=== PATIENT | male | born 1960 | race Caucasian/White ===

== ENCOUNTER → 2017-03-03 | Outpatient (CLI) | payer MEDICARE, OTHER ==
[2017-03-03 11:58] LABS: HEMATOCRIT 50.6 % (37.9-51.0); MEAN CORPUSCULAR HEMOGLOBIN 31.2 pg (27.0-33.4); MEAN CORPUSCULAR HGB CONC 33.5 g/dL (32.0-36.0); MEAN CORPUSCULAR VOLUME 93 fl (80-97); PLATELET COUNT 242 10^3/uL (150-450); RED BLOOD COUNT 5.44 10^6/uL (4.35-5.55); RED CELL DISTRIBUTION WIDTH 15.5 % (11.5-14.0); WHITE BLOOD COUNT 7.7 10^3/uL (4.0-10.5)
[2017-03-03 12:01] LABS: APPEARANCE,URINE CLEAR; BILIRUBIN,URINE NEGATIVE (NEGATIVE); COLOR,URINE YELLOW; GLUCOSE, URINE NEGATIVE (NEGATIVE); KETONES,URINE NEGATIVE (NEGATIVE); LEUKOCYTE ESTERASE,URINE NEGATIVE (NEGATIVE); NITRITE,URINE NEGATIVE (NEGATIVE); PROTEIN,URINE NEGATIVE (NEGATIVE); URINE SPECIFIC GRAVITY 1.013
[2017-03-03 12:25] LABS: ANION GAP 9 (5-19); BLOOD UREA NITROGEN 30 mg/dL (7-20); CALCIUM 9.8 mg/dL (8.4-10.2); CARBON DIOXIDE 27 mmol/L (22-30); CHLORIDE 103 mmol/L (98-107); GLUCOSE 75 mg/dL (75-110); POTASSIUM 5.1 mmol/L (3.6-5.0); SODIUM 139.3 mmol/L (137-145)
== END ==
LOC: OD 11:14
PROVIDERS: ATTEND Internal Medicine Nephrology
DX: I12.9 Hypertensive chronic kidney disease with stage 1 through stage 4 chronic kidney disease, or unspecified chronic kidney disease (principal); N18.3 Chronic kidney disease, stage 3 (moderate); E11.9 Type 2 diabetes mellitus without complications
CPT/HCPCS: 36415; 80048; 81001; 85027

== ENCOUNTER 2017-05-08 17:57 | Emergency (ER) | payer MEDICARE, OTHER ==
--- NOTE | 2017-05-08 19:53 | ER Document Report ---
ED Medical Screen (RME) - General Chief Complaint: Abnormal Lab Results Stated Complaint: ABNORMAL LAB Time Seen by Provider: 05/08/17 19:51 Mode of Arrival: Ambulatory Information source: Patient TRAVEL OUTSIDE OF THE [place] IN LAST 30 DAYS: No - HPI Patient complains to provider of: elevated potassium Notes: 05/08/17 19:52 Patient is here with complaints of high potassium. He states that his doctor called him and told him that blood work they have done in the office showed that his potassium was 6.2 and he should come to the emergency department. Patient denies any symptoms at all. No chest pain or shortness of breath. He states that he has had this happen in the past and has required treatment for hyperkalemia in the past. Physical exam: No acute distress, nonfocal exam. Plan: Blood work and EKG have been ordered. An initial examination was made on the patient as part of the triage process, and it was determined a more comprehensive evaluation was necessary. Initial labs were ordered and patient was transferred to another provider in the ED who assumed care and finished evaluation and plan. - Related Data Allergies/Adverse Reactions: No Known Allergies Allergy (Verified 05/08/17 18:00) Past Medical History - Past Medical History Cardiac Medical History: Reports: Hx Heart Attack - 2012, Hx Hypercholesterolemia, Hx Hypertension Denies: Hx Coronary Artery Disease Pulmonary Medical History: Reports: Hx Pneumonia - HX OF Denies: Hx Asthma, Hx Bronchitis, Hx COPD Neurological Medical History: Reports: Hx Cerebrovascular Accident - 2009, 2012;LEFT SIDED NUMBNESS/TINGLING. Denies: Hx Seizures Endocrine Medical History: Reports: Hx Diabetes Mellitus Type 2 GI Medical History: Reports: Hx Gastroesophageal Reflux Disease Musculoskeltal Medical History: Denies Hx Arthritis Psychiatric Medical History: Reports: Hx Anxiety, Hx Depression Past Surgical History: Reports: Hx Testicular Surgery - right removed - Immunizations Immunizations up to date: Yes Hx Diphtheria, Pertussis, Tetanus Vaccination: No Physical Exam - Vital signs Vitals: Temp Pulse Resp BP Pulse Ox 98.7 F 103 H 20 116/75 96 05/08/17 18:28 05/08/17 18:28 05/08/17 18:28 05/08/17 18:28 05/08/17 18:28 Course - Vital Signs Vital signs: Temp Pulse Resp BP Pulse Ox 98.7 F 103 H 20 116/75 96 05/08/17 18:28 05/08/17 18:28 05/08/17 18:28 05/08/17 18:28 05/08/17 18:28
[2017-05-08 21:13] LABS: ABSOLUTE BASOPHILS # (AUTO) 0.1 10^3/uL (0.0-0.2); ABSOLUTE EOSINOPHILS # (AUTO) 0.3 10^3/uL (0.0-0.6); ABSOLUTE LYMPHOCYTES (AUTO) 2.1 10^3/uL (0.5-4.7); ABSOLUTE MONOCYTES (AUTO) 0.6 10^3/uL (0.1-1.4); ABSOLUTE NEUT (AUTO) 3.7 10^3/uL (1.7-8.2); BASOPHILS % (AUTO) 0.8 % (0-2); HEMATOCRIT 53.2 % (37.9-51.0); HEMOGLOBIN 17.8 g/dL (13.5-17.0); LYMPHOCYTES % (AUTO) 31.3 % (13-45); MEAN CORPUSCULAR HEMOGLOBIN 31.1 pg (27.0-33.4); MEAN CORPUSCULAR HGB CONC 33.5 g/dL (32.0-36.0); MEAN CORPUSCULAR VOLUME 93 fl (80-97); MONOCYTES % (AUTO) 9.4 % (3-13); PLATELET COUNT 222 10^3/uL (150-450); RED BLOOD COUNT 5.73 10^6/uL (4.35-5.55); RED CELL DISTRIBUTION WIDTH 15.5 % (11.5-14.0); SEGMENTED NEUTROPHILS % (AUTO) 54.5 % (42-78); TOTAL CELLS COUNTED % (AUTO) 100 %; WHITE BLOOD COUNT 6.7 10^3/uL (4.0-10.5)
[2017-05-08 21:30] LABS: ALANINE AMINOTRANSFERASE 30 U/L (21-72); ALBUMIN 4.4 g/dL (3.5-5.0); ALKALINE PHOSPHATASE 91 U/L (38-126); ANION GAP 10 (5-19); ASPARTATE AMINO TRANSFERASE 16 U/L (17-59); BILIRUBIN,DIRECT 0.3 mg/dL (0.0-0.4); BILIRUBIN,TOTAL 0.6 mg/dL (0.2-1.3); BLOOD UREA NITROGEN 51 mg/dL (7-20); CALCIUM 9.6 mg/dL (8.4-10.2); CARBON DIOXIDE 26 mmol/L (22-30); CHLORIDE 105 mmol/L (98-107); GLUCOSE 100 mg/dL (75-110); POTASSIUM 5.9 mmol/L (3.6-5.0); SODIUM 140.9 mmol/L (137-145)
[2017-05-08] MEDS ORDERED: ALBUTEROL SULFATE 0.083% NEB 2.5 MG/3 ML AMPUL NEB ONE (22:28)
[2017-05-08] MEDS ORDERED: NORMAL SALINE 1000 ML 1,000 ML IV ONE (22:29)
[2017-05-08] MEDS ORDERED: SODIUM POLYSTYRENE SULFONATE 15 GM/60 ML PO ONE (23:21)
--- NOTE | 2017-05-08 23:28 | ER Document Report ---
ED General - General Chief Complaint: Abnormal Lab Results Stated Complaint: ABNORMAL LAB Time Seen by Provider: 05/08/17 19:51 Mode of Arrival: Ambulatory TRAVEL OUTSIDE OF THE [place] IN LAST 30 DAYS: No - HPI Patient complains to provider of: Hyperkalemia Notes: Patient coming in for evaluation of hyperkalemia. Patient has a history of renal insufficiency is followed by local hog ribber Dr. Christopher apparently had laboratory studies performed was told by the office to come in to the ER today for potassium of 6.3. Patient states currently is on steroids and amoxicillin for bronchitis however no other changes in his medications. Patient states he is had hyperkalemia before is never been admitted to the hospital. Patient otherwise is asymptomatic denies any dizziness weakness muscle cramps denies any other symptoms no fevers chills nausea vomiting chest pain abdominal pain - Related Data Allergies/Adverse Reactions: No Known Allergies Allergy (Verified 05/08/17 18:00) Past Medical History - General Information source: Patient - Social History Smoking Status: Never Smoker Family History: CVA, Hyperlipidemia, Hypertension Patient has suicidal ideation: No Patient has homicidal ideation: No - Past Medical History Cardiac Medical History: Reports: Hx Heart Attack - 2012, Hx Hypercholesterolemia, Hx Hypertension Denies: Hx Coronary Artery Disease Pulmonary Medical History: Reports: Hx Pneumonia - HX OF Denies: Hx Asthma, Hx Bronchitis, Hx COPD Neurological Medical History: Reports: Hx Cerebrovascular Accident - 2009, 2012;LEFT SIDED NUMBNESS/TINGLING. Denies: Hx Seizures Endocrine Medical History: Reports: Hx Diabetes Mellitus Type 2 Renal/ Medical History: Denies: Hx Peritoneal Dialysis GI Medical History: Reports: Hx Gastroesophageal Reflux Disease Musculoskeltal Medical History: Denies Hx Arthritis Psychiatric Medical History: Reports: Hx Anxiety, Hx Depression Past Surgical History: Reports: Hx Testicular Surgery - right removed - Immunizations Immunizations up to date: Yes Hx Diphtheria, Pertussis, Tetanus Vaccination: No Hx Pneumococcal Vaccination: 10/14/12 Review of Systems - Review of Systems Constitutional: Other - Hyperkalemia EENT: No symptoms reported Cardiovascular: No symptoms reported Respiratory: No symptoms reported Gastrointestinal: No symptoms reported Genitourinary: No symptoms reported Male Genitourinary: No symptoms reported Musculoskeletal: No symptoms reported Skin: No symptoms reported Hematologic/Lymphatic: No symptoms reported Neurological/Psychological: No symptoms reported -: Yes All other systems reviewed and negative Physical Exam - Vital signs Vitals: Temp Pulse Resp BP Pulse Ox 98.7 F 103 H 20 116/75 96 05/08/17 18:28 05/08/17 18:28 05/08/17 18:28 05/08/17 18:28 05/08/17 18:28 Interpretation: Normal - General General appearance: Appears well, Alert - HEENT Head: Normocephalic, Atraumatic Eyes: Normal Pupils: PERRL - Respiratory Respiratory status: No respiratory distress Chest status: Nontender Breath sounds: Normal Chest palpation: Normal - Cardiovascular Rhythm: Regular Heart sounds: Normal auscultation Murmur: No - Abdominal Inspection: Normal Distension: No distension Bowel sounds: Normal Tenderness: Nontender Organomegaly: No organomegaly - Back Back: Normal, Nontender - Extremities General upper extremity: Normal inspection, Nontender, Normal color, Normal ROM , Normal temperature General lower extremity: Normal inspection, Nontender, Normal color, Normal ROM , Normal temperature, Normal weight bearing. No: Heather's sign - Neurological Neuro grossly intact: Yes Cognition: Normal Orientation: AAOx4 Canyon Coma Scale Eye Opening: Spontaneous [place] Coma Scale Verbal: Oriented [place] Coma Scale Motor: Obeys Commands Canyon Coma Scale Total: 15 Speech: Normal Motor strength normal: LUE, RUE, LLE, RLE Sensory: Normal - Psychological Associated symptoms: Normal affect, Normal mood - Skin Skin Temperature: Warm Skin Moisture: Dry Skin Color: Normal Course - Re-evaluation Re-evalutation: 05/08/17 23:44 Laboratory studies showed hemoconcentration with renal sufficiency looks to be baseline for the patient along with elevated potassium of 5.9. EKG does not show any peak T waves. Explained to the patient that best course of action would be to admit him for hydration and further monitoring however patient refuses to stay in the hospital tonight. Patient states he would like to be discharged. I did contact his hog ribber Dr. Christopher who agrees to follow the patient for outpatient laboratory testing tomorrow to recheck his potassium agrees with demonstration of Kayexalate at this time along with IV fluids and albuterol. Patient agreed to stay for the treatment modalities. Again patient asymptomatic again does not want to be admitted to the hospital for his hyperkalemia risk and benefits were discussed with the patient patient states understanding. - Vital Signs Vital signs: Temp Pulse Resp BP Pulse Ox 98.7 F 103 H 20 116/75 96 05/08/17 18:28 05/08/17 18:28 05/08/17 18:28 05/08/17 18:28 05/08/17 18:28 - Laboratory Result Diagrams: 05/08/17 20:50 05/08/17 20:50 Laboratory results interpreted by me: 05/08/17 05/08/17 20:50 20:50 RBC 5.73 H Hgb 17.8 H Hct 53.2 H RDW 15.5 H Potassium 5.9 H BUN 51 H Creatinine 2.61 H Est GFR ( Amer) 31 L Est GFR (Non-Af Amer) 25 L Magnesium 2.7 H AST 16 L Discharge - Discharge Clinical Impression: Hyperkalemia Condition: Good Disposition: HOME, SELF-CARE Additional Instructions: Your laboratory studies and I do show that your potassium has down trended to 5.9 which is still elevated. I have discussed your wishes to be discharged at this time with Dr. Christopher. Please make sure he follow-up tomorrow to have your blood drawn again today we can check your potassium. Please make sure you drink plenty of water avoid leafy green vegetables and bananas and other fruits that they are high in potassium. Return to the ER immediately if you feel weak dizzy. He may return to ER anytime for admission for your elevated potassium. Forms: Follow-Up Laboratory Testing
[2017-05-08 23:48] VITALS: BP 133/84
--- NOTE | 2017-05-09 07:46 | EKG REPORT ---
SEVERITY:- NORMAL ECG - SINUS RHYTHM : Confirmed by: Eddie Winn MD 09-May-2017 07:44:56
== END 2017-05-08 23:48 | disposition home or self-care (01) ==
LOC: ER 17:57
DX: E87.5 Hyperkalemia (principal); N28.9 Disorder of kidney and ureter, unspecified; Z79.52 Long term (current) use of systemic steroids; I25.2 Old myocardial infarction; I10 Essential (primary) hypertension; E11.9 Type 2 diabetes mellitus without complications
CPT/HCPCS: 93005; 94640; 99284; 96360; 36415; 83735; 85025; 85027; 80048; 80053; 93010; J7030; A9270

== ENCOUNTER → 2017-05-08 | Outpatient (CLI) | payer MEDICARE, OTHER ==
[2017-05-08 13:41] LABS: HEMATOCRIT 53.3 % (37.9-51.0); HEMOGLOBIN 17.9 g/dL (13.5-17.0); MEAN CORPUSCULAR HGB CONC 33.7 g/dL (32.0-36.0); MEAN CORPUSCULAR VOLUME 92 fl (80-97); PLATELET COUNT 185 10^3/uL (150-450); RED BLOOD COUNT 5.79 10^6/uL (4.35-5.55); RED CELL DISTRIBUTION WIDTH 15.6 % (11.5-14.0); WHITE BLOOD COUNT 6.1 10^3/uL (4.0-10.5)
[2017-05-08 14:09] LABS: ANION GAP 10 (5-19); BLOOD UREA NITROGEN 50 mg/dL (7-20); CALCIUM 9.2 mg/dL (8.4-10.2); CARBON DIOXIDE 26 mmol/L (22-30); CHLORIDE 104 mmol/L (98-107); GLUCOSE 117 mg/dL (75-110); SODIUM 139.9 mmol/L (137-145)
[2017-05-08 14:15] LABS: POTASSIUM 6.4 mmol/L (3.6-5.0)
== END ==
LOC: OD 12:25
PROVIDERS: ATTEND Internal Medicine Nephrology
DX: I12.9 Hypertensive chronic kidney disease with stage 1 through stage 4 chronic kidney disease, or unspecified chronic kidney disease (principal); N18.3 Chronic kidney disease, stage 3 (moderate); E11.9 Type 2 diabetes mellitus without complications
CPT/HCPCS: 36415; 80048; 85027

== ENCOUNTER → 2017-05-09 | Outpatient (CLI) | payer MEDICARE, OTHER ==
[2017-05-09 15:23] LABS: ANION GAP 8 (5-19); BLOOD UREA NITROGEN 44 mg/dL (7-20); CALCIUM 8.7 mg/dL (8.4-10.2); CARBON DIOXIDE 23 mmol/L (22-30); CHLORIDE 109 mmol/L (98-107); GLUCOSE 158 mg/dL (75-110); POTASSIUM 5.1 mmol/L (3.6-5.0); SODIUM 140.3 mmol/L (137-145)
== END ==
LOC: LAB 14:36
PROVIDERS: ATTEND Emergency Medicine
DX: E87.5 Hyperkalemia (principal)
CPT/HCPCS: 36415; 80048; 83735

== ENCOUNTER → 2017-06-12 | Outpatient (CLI) | payer MEDICARE, OTHER ==
[2017-06-12 14:22] LABS: HEMATOCRIT 53.1 % (37.9-51.0); HEMOGLOBIN 18.2 g/dL (13.5-17.0); MEAN CORPUSCULAR HEMOGLOBIN 31.2 pg (27.0-33.4); MEAN CORPUSCULAR HGB CONC 34.2 g/dL (32.0-36.0); MEAN CORPUSCULAR VOLUME 91 fl (80-97); PLATELET COUNT 251 10^3/uL (150-450); RED BLOOD COUNT 5.83 10^6/uL (4.35-5.55); RED CELL DISTRIBUTION WIDTH 15.9 % (11.5-14.0); WHITE BLOOD COUNT 9.3 10^3/uL (4.0-10.5)
[2017-06-12 14:44] LABS: ANION GAP 16 (5-19); BLOOD UREA NITROGEN 38 mg/dL (7-20); CALCIUM 10.1 mg/dL (8.4-10.2); CARBON DIOXIDE 26 mmol/L (22-30); CHLORIDE 104 mmol/L (98-107); GLUCOSE 81 mg/dL (75-110); PHOSPHORUS 5.3 mg/dL (2.5-4.5); POTASSIUM 5.2 mmol/L (3.6-5.0)
== END ==
LOC: OD 13:51
PROVIDERS: ATTEND Internal Medicine Nephrology
DX: I12.9 Hypertensive chronic kidney disease with stage 1 through stage 4 chronic kidney disease, or unspecified chronic kidney disease (principal); N18.3 Chronic kidney disease, stage 3 (moderate); E87.5 Hyperkalemia; E11.9 Type 2 diabetes mellitus without complications
CPT/HCPCS: 36415; 80048; 83735; 83970; 84100; 85027

== ENCOUNTER → 2017-07-13 | Outpatient (CLI) | payer MEDICARE ==
[2017-07-13 10:20] LABS: HEMATOCRIT 49.6 % (37.9-51.0); HEMOGLOBIN 16.6 g/dL (13.5-17.0); MEAN CORPUSCULAR HEMOGLOBIN 30.4 pg (27.0-33.4); MEAN CORPUSCULAR HGB CONC 33.4 g/dL (32.0-36.0); MEAN CORPUSCULAR VOLUME 91 fl (80-97); PLATELET COUNT 312 10^3/uL (150-450); RED BLOOD COUNT 5.45 10^6/uL (4.35-5.55); RED CELL DISTRIBUTION WIDTH 15.5 % (11.5-14.0); WHITE BLOOD COUNT 8.7 10^3/uL (4.0-10.5)
[2017-07-13 10:55] LABS: ANION GAP 11 (5-19); BLOOD UREA NITROGEN 34 mg/dL (7-20); CALCIUM 9.2 mg/dL (8.4-10.2); CARBON DIOXIDE 19 mmol/L (22-30); CHLORIDE 109 mmol/L (98-107); GLUCOSE 205 mg/dL (75-110); PHOSPHORUS 3.4 mg/dL (2.5-4.5); SODIUM 139.2 mmol/L (137-145)
[2017-07-13 10:57] LABS: POTASSIUM 5.9 mmol/L (3.6-5.0)
== END ==
LOC: OD 09:33
PROVIDERS: ATTEND Internal Medicine Nephrology
DX: I12.9 Hypertensive chronic kidney disease with stage 1 through stage 4 chronic kidney disease, or unspecified chronic kidney disease (principal); N18.3 Chronic kidney disease, stage 3 (moderate); E87.5 Hyperkalemia; E11.9 Type 2 diabetes mellitus without complications
CPT/HCPCS: 36415; 80048; 83735; 83970; 84100; 85027

== ENCOUNTER → 2017-07-14 | Outpatient (CLI) | payer MEDICARE | LOC: OD 11:17 | PROVIDERS: ATTEND Physician Assistant Medical | DX: E87.5 Hyperkalemia (principal) | CPT/HCPCS: 36415; 84132 ==

== ENCOUNTER → 2017-08-07 | Outpatient (CLI) | payer MEDICARE ==
[2017-08-07 12:50] LABS: HEMATOCRIT 49.5 % (37.9-51.0); HEMOGLOBIN 16.8 g/dL (13.5-17.0); MEAN CORPUSCULAR HEMOGLOBIN 30.8 pg (27.0-33.4); MEAN CORPUSCULAR HGB CONC 33.9 g/dL (32.0-36.0); MEAN CORPUSCULAR VOLUME 91 fl (80-97); PLATELET COUNT 209 10^3/uL (150-450); RED BLOOD COUNT 5.46 10^6/uL (4.35-5.55); RED CELL DISTRIBUTION WIDTH 16.3 % (11.5-14.0); WHITE BLOOD COUNT 7.9 10^3/uL (4.0-10.5)
[2017-08-07 13:17] LABS: ANION GAP 10 (5-19); BLOOD UREA NITROGEN 34 mg/dL (7-20); CALCIUM 9.7 mg/dL (8.4-10.2); CARBON DIOXIDE 24 mmol/L (22-30); CHLORIDE 108 mmol/L (98-107); GLUCOSE 56 mg/dL (75-110); POTASSIUM 5.4 mmol/L (3.6-5.0); SODIUM 142.1 mmol/L (137-145)
== END ==
LOC: OD 11:48
PROVIDERS: ATTEND Internal Medicine Nephrology
DX: I12.9 Hypertensive chronic kidney disease with stage 1 through stage 4 chronic kidney disease, or unspecified chronic kidney disease (principal); N18.3 Chronic kidney disease, stage 3 (moderate); E11.9 Type 2 diabetes mellitus without complications
CPT/HCPCS: 36415; 80048; 85027

== ENCOUNTER 2017-09-22 11:45 | Inpatient (IN) | payer OTHER, MEDICARE ==
[2017-09-22] MEDS ORDERED: NORMAL SALINE 1000 ML 1,000 ML IV ONE ×2 (12:07→14:47)
--- NOTE | 2017-09-22 12:11 | ER Document Report ---
ED Medical Screen (RME) - General Chief Complaint: Low Blood Pressure Stated Complaint: BLOOD PRESSURE ISSUE Time Seen by Provider: 09/22/17 12:07 Mode of Arrival: Wheelchair Information source: Patient TRAVEL OUTSIDE OF THE [place] IN LAST 30 DAYS: No - HPI Patient complains to provider of: low BP Onset: This morning - Pt. states he has been weak recently and checked his BP at home and it was 64/46. Denies CP, syncope - Related Data Allergies/Adverse Reactions: No Known Allergies Allergy (Verified 05/08/17 18:00) Past Medical History - Past Medical History Cardiac Medical History: Reports: Hx Heart Attack - 2012, Hx Hypercholesterolemia, Hx Hypertension Denies: Hx Coronary Artery Disease Pulmonary Medical History: Reports: Hx Pneumonia - HX OF Denies: Hx Asthma, Hx Bronchitis, Hx COPD Neurological Medical History: Reports: Hx Cerebrovascular Accident - 2009, 2012;LEFT SIDED NUMBNESS/TINGLING. Denies: Hx Seizures Endocrine Medical History: Reports: Hx Diabetes Mellitus Type 2 Renal/ Medical History: Denies: Hx Peritoneal Dialysis GI Medical History: Reports: Hx Gastroesophageal Reflux Disease Musculoskeltal Medical History: Denies Hx Arthritis Psychiatric Medical History: Reports: Hx Anxiety, Hx Depression Past Surgical History: Reports: Hx Testicular Surgery - right removed - Immunizations Immunizations up to date: Yes Hx Diphtheria, Pertussis, Tetanus Vaccination: No Physical Exam - Vital signs Vitals: Temp Pulse Resp BP Pulse Ox 99.5 F 90 20 97/66 L 95 09/22/17 12:00 09/22/17 12:00 09/22/17 12:00 09/22/17 12:00 09/22/17 12:00 Course - Vital Signs Vital signs: Temp Pulse Resp BP Pulse Ox 99.5 F 90 20 97/66 L 95 09/22/17 12:00 09/22/17 12:00 09/22/17 12:00 09/22/17 12:00 09/22/17 12:00 Doctor's Discharge - Discharge Referrals: Annmarie HEARD MD [Primary Care Provider] - Follow up as needed
[2017-09-22 12:44] LABS: ABSOLUTE BASOPHILS # (AUTO) 0.1 10^3/uL (0.0-0.2); ABSOLUTE EOSINOPHILS # (AUTO) 0.2 10^3/uL (0.0-0.6); ABSOLUTE MONOCYTES (AUTO) 0.6 10^3/uL (0.1-1.4); ABSOLUTE NEUT (AUTO) 4.4 10^3/uL (1.7-8.2); BASOPHILS % (AUTO) 0.9 % (0-2); EOSINOPHILS % (AUTO) 3.9 % (0-6); HEMATOCRIT 48.2 % (37.9-51.0); HEMOGLOBIN 16.6 g/dL (13.5-17.0); LYMPHOCYTES % (AUTO) 15.6 % (13-45); MEAN CORPUSCULAR HEMOGLOBIN 31.2 pg (27.0-33.4); MEAN CORPUSCULAR HGB CONC 34.4 g/dL (32.0-36.0); MEAN CORPUSCULAR VOLUME 91 fl (80-97); MONOCYTES % (AUTO) 9.1 % (3-13); PLATELET COUNT 184 10^3/uL (150-450); RED BLOOD COUNT 5.31 10^6/uL (4.35-5.55); RED CELL DISTRIBUTION WIDTH 16.4 % (11.5-14.0); SEGMENTED NEUTROPHILS % (AUTO) 70.5 % (42-78); TOTAL CELLS COUNTED % (AUTO) 100 %; WHITE BLOOD COUNT 6.3 10^3/uL (4.0-10.5)
[2017-09-22 13:16] LABS: ALANINE AMINOTRANSFERASE 36 U/L (21-72); ALBUMIN 3.8 g/dL (3.5-5.0); ALKALINE PHOSPHATASE 70 U/L (38-126); ANION GAP 12 (5-19); ASPARTATE AMINO TRANSFERASE 35 U/L (17-59); BILIRUBIN,DIRECT 0.5 mg/dL (0.0-0.4); BLOOD UREA NITROGEN 51 mg/dL (7-20); CALCIUM 8.5 mg/dL (8.4-10.2); CARBON DIOXIDE 23 mmol/L (22-30); CHLORIDE 100 mmol/L (98-107); CREATINE KINASE 379 U/L (55-170); GLUCOSE 102 mg/dL (75-110); POTASSIUM 5.2 mmol/L (3.6-5.0); SODIUM 135.1 mmol/L (137-145); TOTAL PROTEIN 7.1 g/dL (6.3-8.2)
[2017-09-22 13:27] LABS: CREATINE KINASE MB 3.41 ng/mL (<4.55)
[2017-09-22 13:28] LABS: TROPONIN I < 0.012 ng/mL
--- NOTE | 2017-09-22 14:47 | ER Document Report ---
ED General - General Mode of Arrival: Wheelchair Information source: Patient TRAVEL OUTSIDE OF THE [place] IN LAST 30 DAYS: No <SABINA CERRATO - Last Filed: 09/22/17 19:06> <MAYECHILANGO Shashi - Last Filed: 09/22/17 23:38> - General Chief Complaint: Low Blood Pressure Stated Complaint: BLOOD PRESSURE ISSUE Time Seen by Provider: 09/22/17 12:07 Notes: Patient is a 56 year old male with renal insufficiency presents to the emergency department complaining of multiple symptoms including decreased appetite, fatigue and congestion. Patient states he took his blood pressure this morning and found it to be 64/46. Patient states he has been feeling weak and without an appetite all week further attributing his weakness and decreased appetite to being prescribed new medications due to being diagnosed with gout. Patient denies changes in stool, chest pain or cough. Patient mentions having kidney problems and following up with pen or pencil assembly machine operator, Dr. Christopher. Patient's PCP is Dr. Cerna. (SABINA CERRATO) - Related Data Allergies/Adverse Reactions: No Known Allergies Allergy (Verified 09/22/17 12:09) Past Medical History - General Information source: Patient - Social History Smoking Status: Former Smoker Family History: CVA, Hyperlipidemia, Hypertension Patient has suicidal ideation: No Patient has homicidal ideation: No - Past Medical History Cardiac Medical History: Reports: Hx Heart Attack - 2012, Hx Hypercholesterolemia, Hx Hypertension Pulmonary Medical History: Reports: Hx Pneumonia - HX OF Neurological Medical History: Reports: Hx Cerebrovascular Accident - 2009, 2012;LEFT SIDED NUMBNESS/TINGLING Endocrine Medical History: Reports: Hx Diabetes Mellitus Type 2 GI Medical History: Reports: Hx Gastroesophageal Reflux Disease Psychiatric Medical History: Reports: Hx Anxiety, Hx Depression Past Surgical History: Reports: Hx Testicular Surgery - right removed - Immunizations Immunizations up to date: Yes Hx Diphtheria, Pertussis, Tetanus Vaccination: No Hx Pneumococcal Vaccination: 10/14/12 <SABINA CERRATO - Last Filed: 09/22/17 19:06> Review of Systems - Review of Systems Constitutional: See HPI, Weakness EENT: No symptoms reported Cardiovascular: No symptoms reported Respiratory: No symptoms reported Gastrointestinal: See HPI, Poor appetite Genitourinary: No symptoms reported Male Genitourinary: No symptoms reported Musculoskeletal: No symptoms reported Skin: No symptoms reported Hematologic/Lymphatic: No symptoms reported Neurological/Psychological: No symptoms reported -: Yes All other systems reviewed and negative <SABINA CERRATO - Last Filed: 09/22/17 19:06> Physical Exam <SABINA CERRATO - Last Filed: 09/22/17 19:06> <MAYECHILANGO - Last Filed: 09/22/17 23:38> - Vital signs Vitals: Temp Pulse Resp BP Pulse Ox 99.5 F 90 20 97/66 L 95 09/22/17 12:00 09/22/17 12:00 09/22/17 12:00 09/22/17 12:00 09/22/17 12:00 - Notes Notes: GENERAL: Alert, interacts well. No acute distress. HEAD: Normocephalic, atraumatic. EYES: Pupils equal, round, and reactive to light. Extraocular movements intact. ENT: Oral mucosa dry, tongue midline. NECK: Full range of motion. Supple. Trachea midline. LUNGS: Clear to auscultation bilaterally, no wheezes, rales, or rhonchi. No respiratory distress. HEART: Regular rate and rhythm. No murmurs, gallops, or rubs. ABDOMEN: Soft, non-tender. Non-distended. Bowel sounds present in all 4 quadrants. EXTREMITIES: Moves all 4 extremities spontaneously. NEUROLOGICAL: Alert and oriented x3. Normal speech. PSYCH: Normal affect, normal mood. SKIN: Warm, dry, normal turgor. No rashes or lesions noted. (SABINA CERRATO) Course - Laboratory Result Diagrams: 09/22/17 12:26 09/22/17 12:26 <SABINA CERRATO - Last Filed: 09/22/17 19:06> - Laboratory Result Diagrams: 09/22/17 12:26 09/22/17 12:26 - EKG Interpretation by Sd EKG shows normal: Sinus rhythm Rate: Normal Rhythm: NSR - Normal axis and intervals <MAYECHILANGO Danielle - Last Filed: 09/22/17 23:38> - Re-evaluation Re-evalutation: 09/22/17 14:49 Patient's creatinine has not was doubled from previous. Patient states that he is been feeling nauseous and lack of appetite since starting a new [facility] medicine [facility] Will admit patient to trend kidney function and a known patient with chronic kidney disease to ensure no further decompensation. Fluid drip started in emergency department. Otherwise , all other labs not concerning or within normal limits. (CHILANGO VILLAVICENCIO) - Vital Signs Vital signs: Temp Pulse Resp BP Pulse Ox 98.1 F 103 H 20 124/68 95 09/22/17 21:50 09/22/17 23:20 09/22/17 23:20 09/22/17 21:50 09/22/17 23:20 - Laboratory Laboratory results interpreted by me: 09/22/17 09/22/17 12:26 12:26 RDW 16.4 H Sodium 135.1 L Potassium 5.2 H BUN 51 H Creatinine 3.92 H Est GFR ( Amer) 19 L Est GFR (Non-Af Amer) 16 L Direct Bilirubin 0.5 H Creatine Kinase 379 H Discharge <SABINA CERRATO - Last Filed: 09/22/17 19:06> - Discharge Admitting Provider: [facility] Unit Admitted: Telemetry <CHILANGO VILLAVICENCIO - Last Filed: 09/22/17 23:38> - Discharge Clinical Impression: Acute renal injury Condition: Good Disposition: ADMITTED OBSERVATION Scribe Attestation: 09/22/17 23:38 I personally performed the services described in the documentation, reviewed and edited the documentation which was dictated to the scribe in my presence, and it accurately records my words and actions. (CHILANGO VILLAVICENCIO) Scribe Documentation - Scribe Written by Scribe:: Jose Álvarez, 09/22/2017 15:15 acting as scribe for DrFrederic:: Maye <SABINA CERRATO - Last Filed: 09/22/17 19:06>
[2017-09-22] MEDS ORDERED: NORMAL SALINE 1000 ML 1,000 ML IV PRN (15:14)
--- NOTE | 2017-09-22 16:03 | PDOC H&P ---
History of Present Illness Admission Date/PCP: 09/22/17 15:01 JAMAL MARROQUIN DO History of Present Illness: CHILANOG SANDRA is a 56 year old male who presents to the ED today with complaints of weakness. The patient states that several days ago he was started on allopurinol by his doctor at the [facility]. He states that someone there felt that he had Gout, although he denies having any painful, red, or hot joints. Since starting the allopurinol, the patient states that he has not had an appetite. Today he felt weak and came to the ED. He was found to have a greatly elevated creatinine over his baseline of about 2.0. Past Medical History Cardiac Medical History: Reports: Myocardial Infarction - 2013, Hyperlipidema, Hypertension Denies: Coronary Artery Disease Pulmonary Medical History: Reports: Pneumonia - HX OF Denies: Asthma, Bronchitis, Chronic Obstructive Pulmonary Disease (COPD) Neurological Medical History: Denies: Seizures Endocrine Medical History: Reports: Diabetes Mellitus Type 2 GI Medical History: Reports: Gastroesophageal Reflux Disease Musculoskeltal Medical History: Denies: Arthritis Psychiatric Medical History: Reports: Depression Hematology: Denies: Anemia Social History Smoking Status: Former Smoker Frequency of Alcohol Use: Rare Hx Recreational Drug Use: No Hx Prescription Drug Abuse: No Family History Family History: CVA, Hyperlipidemia, Hypertension Parental Family History Reviewed: Yes Children Family History Reviewed: Yes Sibling(s) Family History Reviewed.: Yes Medication/Allergy Allergies/Adverse Reactions: No Known Allergies Allergy (Verified 09/22/17 12:09) Review of Systems Constitutional: PRESENT: anorexia, fatigue, weakness. ABSENT: fever(s), headache(s) Eyes: ABSENT: visual disturbances Ears: ABSENT: hearing changes Nose, Mouth, and Throat: ABSENT: headache(s), mouth pain, vertigo Cardiovascular: ABSENT: chest pain, edema, orthropnea, palpitations Respiratory: ABSENT: cough, dyspnea, hemoptysis Gastrointestinal: PRESENT: dysphagia. ABSENT: abdominal pain, constipation, hematemesis, hematochezia, nausea Musculoskeletal: ABSENT: back pain, joint swelling, muscle weakness Integumentary: ABSENT: erythema, pruritus, wounds Neurological: PRESENT: weakness. ABSENT: confusion, focal weakness, frequent falls, numbness, paresthesias, tremor(s) Psychiatric: ABSENT: anxiety, depression, homidical ideation, suicidal ideation Endocrine: ABSENT: cold intolerance, heat intolerance, polydipsia, polyphagia, polyuria Physical Exam Vital Signs: Temp Pulse Resp BP Pulse Ox 99.5 F 90 20 97/66 L 95 09/22/17 12:00 09/22/17 12:00 09/22/17 12:00 09/22/17 12:00 09/22/17 12:00 General appearance: PRESENT: no acute distress, cooperative, well-developed, well-nourished Respiratory exam: PRESENT: other - No increased work of breathing.. ABSENT: rales, rhonchi, wheezes Cardiovascular exam: PRESENT: RRR. ABSENT: gallop, rubs, systolic murmur Pulses: PRESENT: normal dorsalis pedis pul GI/Abdominal exam: PRESENT: normal bowel sounds, soft. ABSENT: hernia, mass, tenderness Rectal exam: PRESENT: deferred Extremities exam: ABSENT: clubbing, joint swelling, tenderness Musculoskeletal exam: PRESENT: normal inspection. ABSENT: deformity, dislocation Neurological exam: PRESENT: alert, awake Psychiatric exam: PRESENT: appropriate affect, normal mood Skin exam: PRESENT: dry, intact, warm Assessment & Plan - Diagnosis (1) Acute on chronic renal insufficiency Is this a current diagnosis for this admission?: Yes Plan: IV fluids and avoid nephrotoxic agents. I will monitor creatinine and electrolytes. Renal consult if he fails to respond. Stop allopurinol. (2) DM II (diabetes mellitus, type II), controlled Qualifiers: Diabetes mellitus correction insulin use: unspecified termite exterminator insulin use status Diabetes mellitus complication status: with kidney complications Diabetes mellitus complication detail: with chronic kidney disease Chronic kidney disease stage: stage 3 (moderate) Qualified Code(s): E11.22 - Type 2 diabetes mellitus with diabetic chronic kidney disease; N18.3 - Chronic kidney disease, stage 3 (moderate); N18.3 - Chronic kidney disease, stage 3 (moderate) ; N18.3 - Chronic kidney disease, stage 3 (moderate) Is this a current diagnosis for this admission?: Yes Plan: FSBS and SSI. Continue home medications as possible. (3) Adverse drug reaction Qualifiers: Encounter type: initial encounter Qualified Code(s): T50.905A - Adverse effect of unspecified drugs, medicaments and biological substances, initial encounter Is this a current diagnosis for this admission?: Yes Plan: The patient states that he has had no appetite since starting allopurinol. (4) GERD (gastroesophageal reflux disease) Qualifiers: Esophagitis presence: without esophagitis Qualified Code(s): K21.9 - Gastro -esophageal reflux disease without esophagitis Is this a current diagnosis for this admission?: Yes (5) Hypotension Is this a current diagnosis for this admission?: Yes Plan: IV fluids and hold antihypertensives. - Time Time Spent: 50 to 70 Minutes Medications reviewed and adjusted accordingly: Yes Anticipated discharge: Home - Inpatient Certification Based on my medical assessment, after consideration of the patient's comorbidities, presenting symptoms, or acuity I expect that the services needed warrant INPATIENT care.: Yes I certify that my determination is in accordance with my understanding of Medicare's requirements for reasonable and necessary INPATIENT services [42 CFR 412.3e].: Yes Medical Necessity: Significant Comorbidiites Make Outpatient Treatment Too Risky , Need For IV Fluids, Need For Continuous Telemetry Monitoring, Risk of Complication if Not Cared For in Hospital
[2017-09-22] MEDS: HEPARIN SOD (PORCINE) 5,000 UNIT/ML 1 ML SYRINGE SUBCUT SCH (22:52)
[2017-09-22] MEDS ORDERED: PANTOPRAZOLE SODIUM 40 MG VIAL IV ONE (23:15)
[2017-09-22] MEDS ORDERED: HYDROCORTISONE SOD SUCCINATE INJ/PF 100 MG/2 ML SDV IV ONE (23:15)
[2017-09-22] MEDS: IPRATROPIUM/ALBUTEROL 0.5-2.5 MG/3 ML AMPUL NEB PRN (23:20)
--- NOTE | 2017-09-23 00:10 | EKG REPORT ---
SEVERITY:- NORMAL ECG - SINUS RHYTHM : Confirmed by: Arabella Verdugo MD 23-Sep-2017 00:09:40
--- NOTE | 2017-09-23 02:55 | RADIOLOGY REPORT (SQ) ---
EXAM DESCRIPTION: XR CHEST 1 VIEW COMPLETED DATE/TME: 09/23/2017 00:00 CLINICAL HISTORY: 56 years Male, SOB COMPARISON: July 03, 2015 NUMBER OF VIEWS/TECHNIQUE: 1/AP FINDINGS: Adequate lung volume, new small nodular opacity of the left lateral lung base, small chronic bibasilar atelectasis scar, normal cardiac silhouette, and grossly intact bony thorax. IMPRESSION: Small nodular opacity of the left lung base. Differential etiologies include infectious, inflammatory, and neoplastic processes. Recommend CR/CT surveillance including at 7-12 weeks following initiation of any clinically warranted therapy.
[2017-09-23] MEDS: HEPARIN SOD (PORCINE) 5,000 UNIT/ML 1 ML SYRINGE SUBCUT SCH ×3 (05:08→23:09)
[2017-09-23 06:10] LABS: ABSOLUTE BASOPHILS # (AUTO) 0.1 10^3/uL (0.0-0.2); ABSOLUTE LYMPHOCYTES (AUTO) 0.9 10^3/uL (0.5-4.7); ABSOLUTE MONOCYTES (AUTO) 0.3 10^3/uL (0.1-1.4); BASOPHILS % (AUTO) 1.3 % (0-2); EOSINOPHILS % (AUTO) 0.7 % (0-6); HEMOGLOBIN 15.6 g/dL (13.5-17.0); LYMPHOCYTES % (AUTO) 17.7 % (13-45); MEAN CORPUSCULAR HEMOGLOBIN 31.5 pg (27.0-33.4); MEAN CORPUSCULAR HGB CONC 34.6 g/dL (32.0-36.0); MEAN CORPUSCULAR VOLUME 91 fl (80-97); MONOCYTES % (AUTO) 5.9 % (3-13); PLATELET COUNT 148 10^3/uL (150-450); RED BLOOD COUNT 4.93 10^6/uL (4.35-5.55); RED CELL DISTRIBUTION WIDTH 16.3 % (11.5-14.0); SEGMENTED NEUTROPHILS % (AUTO) 74.4 % (42-78); TOTAL CELLS COUNTED % (AUTO) 100 %; WHITE BLOOD COUNT 5.4 10^3/uL (4.0-10.5)
[2017-09-23 06:25] LABS: ANION GAP 11 (5-19); BLOOD UREA NITROGEN 51 mg/dL (7-20); CALCIUM 8.3 mg/dL (8.4-10.2); CARBON DIOXIDE 19 mmol/L (22-30); CHLORIDE 107 mmol/L (98-107); GLUCOSE 123 mg/dL (75-110); SODIUM 137.3 mmol/L (137-145)
[2017-09-23 06:33] LABS: POTASSIUM 6.1 mmol/L (3.6-5.0)
[2017-09-23] MEDS ORDERED: DEXTROSE 50%-WATER 25 GM/50 ML DISP.SYRIN IV ONE (07:00)
[2017-09-23] MEDS ORDERED: CALCIUM GLUCONATE 1000 MG/10 ML INJ IV ONE (07:00)
[2017-09-23] MEDS ORDERED: SODIUM POLYSTYRENE SULFONATE 15 GM/60 ML PO ONE (07:00)
[2017-09-23] MEDS ORDERED: INSULIN REG, HUMAN 100 UNIT/ML 3 ML VIAL (PYX) IV ONE (07:00)
[2017-09-23] MEDS: IPRATROPIUM/ALBUTEROL 0.5-2.5 MG/3 ML AMPUL NEB PRN ×3 (08:22→19:39)
[2017-09-23] MEDS ORDERED: NORMAL SALINE 1000 ML 1,000 ML IV PRN (11:50)
[2017-09-23] MEDS ORDERED: HYDROCODONE/ACETAMINOPHEN 5-325 MG TABLET PO PRN (11:57)
--- NOTE | 2017-09-23 12:20 | EKG REPORT ---
SEVERITY:- NORMAL ECG - SINUS RHYTHM : Confirmed by: Arabella Verdugo MD 23-Sep-2017 12:20:14
--- NOTE | 2017-09-23 12:52 | RADIOLOGY REPORT (SQ) ---
EXAM DESCRIPTION: CHEST SINGLE VIEW COMPLETED DATE/TIME: 09/23/2017 12:42 pm REASON FOR STUDY: dyspnea COMPARISON: Earlier the same day. EXAM PARAMETERS: NUMBER OF VIEWS: One view. TECHNIQUE: Single frontal radiographic view of the chest acquired. RADIATION DOSE: NA LIMITATIONS: None. FINDINGS: LUNGS AND PLEURA: No opacities, masses or pneumothorax. No pleural effusion. MEDIASTINUM AND HILAR STRUCTURES: No masses. Contour normal. HEART AND VASCULAR STRUCTURES: Heart normal in size. Normal vasculature. BONES: No acute findings. HARDWARE: None in the chest. OTHER: No other significant finding. IMPRESSION: NO ACUTE RADIOGRAPHIC FINDING IN THE CHEST. TECHNICAL DOCUMENTATION: JOB ID: [id number] [employer]- All Rights Reserved Reading location - IP/workstation name: [email or web address]
[2017-09-23 13:36] LABS: ANION GAP 11 (5-19); BLOOD UREA NITROGEN 49 mg/dL (7-20); CALCIUM 8.6 mg/dL (8.4-10.2); CARBON DIOXIDE 23 mmol/L (22-30); CHLORIDE 105 mmol/L (98-107); GLUCOSE 157 mg/dL (75-110); POTASSIUM 5.2 mmol/L (3.6-5.0); SODIUM 139.1 mmol/L (137-145)
[2017-09-23] MEDS ORDERED: GLUCAGON,HUMAN RECOMB 1 MG INJ IM PRN (17:51)
[2017-09-23] MEDS ORDERED: DEXTROSE 40% GEL 15 GM TUBE PO PRN ×2 (17:51)
[2017-09-23] MEDS ORDERED: DEXTROSE 50%-WATER 25 GM/50 ML DISP.SYRIN IV PRN ×2 (17:51)
--- NOTE | 2017-09-23 17:54 | PDOC PROGRESS REPORT ---
Subjective Progress Note for:: 09/23/17 Subjective:: The patient is without new complaints. Reason For Visit: ACUTE ON CHRONIC KIDNEY INJURY HYPERKALEMIA Physical Exam Vital Signs: Temp Pulse Resp BP Pulse Ox 98 F 82 18 132/68 H 97 09/23/17 16:27 09/23/17 16:27 09/23/17 16:27 09/23/17 16:27 09/23/17 16:27 Intake & Output 09/22/17 09/23/17 09/24/17 06:59 06:59 06:59 Intake Total 733 1000 Balance 733 1000 General appearance: PRESENT: no acute distress, cooperative Respiratory exam: PRESENT: other - No increased work of breathing. No wheezes, rales, or rhonchi. Cardiovascular exam: PRESENT: RRR. ABSENT: gallop, rubs, systolic murmur Pulses: PRESENT: normal dorsalis pedis pul GI/Abdominal exam: PRESENT: soft. ABSENT: distended, hernia, mass, tenderness Musculoskeletal exam: PRESENT: full ROM. ABSENT: deformity, tenderness Neurological exam: PRESENT: alert, awake, oriented to person, oriented to time, oriented to situation, CN II-XII grossly intact. ABSENT: motor sensory deficit Psychiatric exam: PRESENT: appropriate affect, normal mood Skin exam: PRESENT: dry, intact, warm Results Laboratory Results: 09/23/17 05:17 09/23/17 12:06 09/23/17 09/23/17 09/23/17 05:17 05:17 12:06 WBC 5.4 RBC 4.93 Hgb 15.6 Hct 45.0 MCV 91 MCH 31.5 MCHC 34.6 RDW 16.3 H Plt Count 148 L Seg Neutrophils % 74.4 Lymphocytes % 17.7 Monocytes % 5.9 Eosinophils % 0.7 Basophils % 1.3 Absolute Neutrophils 4.0 Absolute Lymphocytes 0.9 Absolute Monocytes 0.3 Absolute Eosinophils 0.0 Absolute Basophils 0.1 Sodium 137.3 139.1 Potassium 6.1 H* 5.2 H Chloride 107 105 Carbon Dioxide 19 L 23 Anion Gap 11 11 BUN 51 H 49 H Creatinine 3.16 H 2.89 H Est GFR ( Amer) 25 L 27 L Est GFR (Non-Af Amer) 20 L 23 L Glucose 123 H 157 H Calcium 8.3 L 8.6 Magnesium 2.4 H 09/22/17 09/22/17 09/22/17 12:26 12:26 12:26 WBC 6.3 RBC Hgb 16.6 Hct 48.2 MCV MCH MCHC RDW 16.4 H Plt Count 184 Sodium 135.1 L Potassium 5.2 H Chloride 100 Carbon Dioxide 23 Anion Gap BUN 51 H Creatinine 3.92 H Est GFR ( Amer) Est GFR (Non-Af Amer) Glucose 102 Calcium 8.5 Total Bilirubin 1.0 Direct Bilirubin 0.5 H AST 35 ALT 36 Alkaline Phosphatase 70 Creatine Kinase 379 H CK-MB (CK-2) 3.41 Troponin I < 0.012 Total Protein 7.1 Albumin 3.8 09/23/17 09/23/17 05:17 12:06 WBC 5.4 RBC 4.93 Hgb 15.6 Hct 45.0 MCV 91 MCH 31.5 MCHC 34.6 RDW 16.3 H Plt Count 148 L Sodium 139.1 Potassium 5.2 H Chloride 105 Carbon Dioxide 23 Anion Gap 11 BUN 49 H Creatinine 2.89 H Est GFR ( Amer) 27 L Est GFR (Non-Af Amer) 23 L Glucose 157 H Calcium 8.6 Total Bilirubin Direct Bilirubin AST ALT Alkaline Phosphatase Creatine Kinase CK-MB (CK-2) Troponin I Total Protein Albumin Impressions: Chest X-Ray 09/23/17 00:00 IMPRESSION: NO ACUTE RADIOGRAPHIC FINDING IN THE CHEST. Assessment & Plan - Diagnosis (1) Acute on chronic renal insufficiency Is this a current diagnosis for this admission?: Yes Plan: IV fluids and avoid nephrotoxic agents. Slowly improving. (2) DM II (diabetes mellitus, type II), controlled Qualifiers: Diabetes mellitus manager terminal insulin use: unspecified mcc insulin use status Diabetes mellitus complication status: with kidney complications Diabetes mellitus complication detail: with chronic kidney disease Chronic kidney disease stage: stage 3 (moderate) Qualified Code(s): E11.22 - Type 2 diabetes mellitus with diabetic chronic kidney disease; N18.3 - Chronic kidney disease, stage 3 (moderate); N18.3 - Chronic kidney disease, stage 3 (moderate) ; N18.3 - Chronic kidney disease, stage 3 (moderate) Is this a current diagnosis for this admission?: Yes Plan: FSBS and SSI. Continue home medications as possible. (3) Adverse drug reaction Qualifiers: Encounter type: initial encounter Qualified Code(s): T50.905A - Adverse effect of unspecified drugs, medicaments and biological substances, initial encounter Is this a current diagnosis for this admission?: Yes Plan: The patient states that he has had no appetite since starting allopurinol. (4) GERD (gastroesophageal reflux disease) Qualifiers: Esophagitis presence: without esophagitis Qualified Code(s): K21.9 - Gastro -esophageal reflux disease without esophagitis Is this a current diagnosis for this admission?: Yes Plan: PPI. (5) Hypotension Is this a current diagnosis for this admission?: Yes Plan: Resolved, but antihypertensives still held. (6) Pulmonary nodule Is this a current diagnosis for this admission?: Yes Plan: The patient's nodule will require surveillance follow up CT at 7-12 weeks. The patient is a current smoker. - Time Time Spent with patient: 25-34 minutes Medications reviewed and adjusted accordingly: Yes
[2017-09-23] MEDS: ATORVASTATIN CALCIUM 80 MG TABLET PO SCH (23:08)
[2017-09-23] MEDS: ACETAMINOPHEN 325 MG TABLET PO PRN (23:34)
[2017-09-24 00:40] LABS: APPEARANCE,URINE CLEAR; BILIRUBIN,URINE NEGATIVE (NEGATIVE); COLOR,URINE YELLOW; GLUCOSE, URINE NEGATIVE (NEGATIVE); KETONES,URINE NEGATIVE (NEGATIVE); LEUKOCYTE ESTERASE,URINE NEGATIVE (NEGATIVE); NITRITE,URINE NEGATIVE (NEGATIVE); PROTEIN,URINE NEGATIVE (NEGATIVE); URINE SPECIFIC GRAVITY 1.016; UROBILINOGEN,URINE NEGATIVE mg/dL (<2.0)
[2017-09-24] MEDS: HEPARIN SOD (PORCINE) 5,000 UNIT/ML 1 ML SYRINGE SUBCUT SCH ×2 (05:39→13:11)
[2017-09-24] MEDS: IPRATROPIUM/ALBUTEROL 0.5-2.5 MG/3 ML AMPUL NEB PRN ×3 (08:21→19:59)
--- NOTE | 2017-09-24 08:40 | RADIOLOGY REPORT (SQ) ---
EXAM DESCRIPTION: CHEST SINGLE VIEW COMPLETED DATE/TIME: 09/24/2017 8:19 am REASON FOR STUDY: elevated temp. COMPARISON: 09/23/2017. EXAM PARAMETERS: NUMBER OF VIEWS: One view. TECHNIQUE: Single frontal radiographic view of the chest acquired. RADIATION DOSE: NA LIMITATIONS: None. FINDINGS: LUNGS AND PLEURA: Trace left pleural effusion. No infiltrate. MEDIASTINUM AND HILAR STRUCTURES: No masses. Contour normal. HEART AND VASCULAR STRUCTURES: Heart normal in size. Normal vasculature. BONES: No acute findings. HARDWARE: None in the chest. OTHER: No other significant finding. IMPRESSION: Trace left pleural effusion. TECHNICAL DOCUMENTATION: JOB ID: [id number] [employer]- All Rights Reserved Reading location - IP/workstation name: [email or web address]
[2017-09-24] MEDS: SERTRALINE HCL 50 MG TABLET PO SCH (09:37)
[2017-09-24] MEDS: ISOSORBIDE MONONITRATE 30 MG TAB.ER.24H PO SCH (09:37)
[2017-09-24] MEDS: ASPIRIN 81 MG TABLET, ENT COATED PO SCH (09:37)
[2017-09-24] MEDS: CLOPIDOGREL BISULFATE 75 MG TABLET PO SCH (09:37)
[2017-09-24 10:18] LABS: HEMATOCRIT 49.4 % (37.9-51.0); HEMOGLOBIN 16.9 g/dL (13.5-17.0); MEAN CORPUSCULAR HEMOGLOBIN 31.2 pg (27.0-33.4); MEAN CORPUSCULAR HGB CONC 34.2 g/dL (32.0-36.0); MEAN CORPUSCULAR VOLUME 91 fl (80-97); PLATELET COUNT 167 10^3/uL (150-450); RED BLOOD COUNT 5.42 10^6/uL (4.35-5.55); RED CELL DISTRIBUTION WIDTH 16.4 % (11.5-14.0)
[2017-09-24 10:32] LABS: GLUCOSE 210 mg/dL (75-110); POTASSIUM 4.6 mmol/L (3.6-5.0)
[2017-09-24 10:34] LABS: ANION GAP 13 (5-19); BLOOD UREA NITROGEN 41 mg/dL (7-20); CALCIUM 8.6 mg/dL (8.4-10.2); CARBON DIOXIDE 21 mmol/L (22-30); CHLORIDE 104 mmol/L (98-107); SODIUM 137.6 mmol/L (137-145)
[2017-09-24 10:48] LABS: ABSOLUTE LYMPHOCYTES# (MANUAL) 2.1 10^3/uL (0.5-4.7); ABSOLUTE MONOCYTES # (MANUAL) 0.2 10^3/uL (0.1-1.4); ABSOLUTE NEUTROPHILS# (MANUAL) 5.4 10^3/uL (1.7-8.2); BASOPHILS % (MANUAL) 0 % (0-2); EOSINOPHILS % (MANUAL) 4 % (0-6); LYMPHOCYTES % (MANUAL) 21 % (13-45); MONOCYTES % (MANUAL) 3 % (3-13); SEGMENTED NEUTROPHILS % (MAN) 67 % (42-78); TOTAL CELLS COUNTED 100
[2017-09-24 10:49] LABS: ANISOCYTOSIS 1+; PLATELET COMMENT ADEQUATE
[2017-09-24] MEDS: INSULIN REG, HUMAN 100 UNIT/ML 3 ML VIAL (PYX) SUBCUT PRN (13:11)
[2017-09-24] MEDS: CARVEDILOL 6.25 MG TABLET PO SCH (15:00)
[2017-09-24] MEDS ORDERED: LISINOPRIL 10 MG TABLET PO ONE (16:00)
--- NOTE | 2017-09-24 16:13 | PDOC PROGRESS REPORT ---
Subjective Progress Note for:: 09/24/17 Subjective:: The patient is complaining of upper airway and nasal congestion Reason For Visit: ACUTE ON CHRONIC KIDNEY INJURY HYPERKALEMIA Physical Exam Vital Signs: Temp Pulse Resp BP Pulse Ox 97.5 F 89 16 138/89 H 97 09/24/17 11:44 09/24/17 14:01 09/24/17 14:01 09/24/17 11:44 09/24/17 14:01 Intake & Output 09/23/17 09/24/17 09/25/17 06:59 06:59 06:59 Intake Total 733 1871 650 Balance 733 1871 650 Weight 93.1 kg General appearance: PRESENT: no acute distress, cooperative Respiratory exam: PRESENT: other - No increased work of breathing. No wheezes rales, or rhonchi. No tactile fremitus.. ABSENT: rales, rhonchi, wheezes Cardiovascular exam: PRESENT: RRR, other - No lateral PMI. No thrills.. ABSENT : gallop, rubs, systolic murmur GI/Abdominal exam: PRESENT: normal bowel sounds, soft. ABSENT: hernia, mass, organolmegaly Extremities exam: ABSENT: clubbing, joint swelling, tenderness, +1 edema Musculoskeletal exam: PRESENT: normal inspection. ABSENT: deformity, dislocation, tenderness Neurological exam: PRESENT: alert, awake, oriented to person, oriented to place , oriented to time, oriented to situation, CN II-XII grossly intact. ABSENT: motor sensory deficit Skin exam: PRESENT: dry, intact, warm Results Laboratory Results: 09/24/17 09:38 09/24/17 09:38 09/24/17 09/24/17 09/24/17 00:13 09:38 09:38 WBC 8.0 RBC 5.42 Hgb 16.9 Hct 49.4 MCV 91 MCH 31.2 MCHC 34.2 RDW 16.4 H Plt Count 167 Seg Neutrophils % Not Reportable Lymphocytes % Not Reportable Monocytes % Not Reportable Eosinophils % Not Reportable Basophils % Not Reportable Absolute Neutrophils Not Reportable Absolute Lymphocytes Not Reportable Absolute Monocytes Not Reportable Absolute Eosinophils Not Reportable Absolute Basophils Not Reportable Sodium 137.6 Potassium 4.6 Chloride 104 Carbon Dioxide 21 L Anion Gap 13 BUN 41 H Creatinine 2.45 H Est GFR ( Amer) 33 L Est GFR (Non-Af Amer) 27 L Glucose 210 H Calcium 8.6 Prostate Specific Ag Urine Color YELLOW Urine Appearance CLEAR Urine pH 5.0 Ur Specific [place] 1.016 Urine Protein NEGATIVE Urine Glucose (UA) NEGATIVE Urine Ketones NEGATIVE Urine Blood NEGATIVE Urine Nitrite NEGATIVE Ur Leukocyte Esterase NEGATIVE Urine RBC (Auto) 0 09/24/17 09:38 WBC RBC Hgb Hct MCV MCH MCHC RDW Plt Count Seg Neutrophils % Lymphocytes % Monocytes % Eosinophils % Basophils % Absolute Neutrophils Absolute Lymphocytes Absolute Monocytes Absolute Eosinophils Absolute Basophils Sodium Potassium Chloride Carbon Dioxide Anion Gap BUN Creatinine Est GFR ( Amer) Est GFR (Non-Af Amer) Glucose Calcium Prostate Specific [place] 0.560 Urine Color Urine Appearance Urine pH Ur Specific [place] Urine Protein Urine Glucose (UA) Urine Ketones Urine Blood Urine Nitrite Ur Leukocyte Esterase Urine RBC (Auto) Impressions: Chest X-Ray 09/24/17 08:00 IMPRESSION: Trace left pleural effusion. Assessment & Plan - Diagnosis (1) Acute on chronic renal insufficiency Is this a current diagnosis for this admission?: Yes Plan: IV fluids and avoid nephrotoxic agents. Slowly improving. (2) DM II (diabetes mellitus, type II), controlled Qualifiers: Diabetes mellitus penitentiary insulin use: unspecified terminal manager insulin use status Diabetes mellitus complication status: with kidney complications Diabetes mellitus complication detail: with chronic kidney disease Chronic kidney disease stage: stage 3 (moderate) Qualified Code(s): E11.22 - Type 2 diabetes mellitus with diabetic chronic kidney disease; N18.3 - Chronic kidney disease, stage 3 (moderate); N18.3 - Chronic kidney disease, stage 3 (moderate) ; N18.3 - Chronic kidney disease, stage 3 (moderate) Is this a current diagnosis for this admission?: Yes Plan: FSBS and SSI. Continue home medications as possible. (3) Adverse drug reaction Qualifiers: Encounter type: initial encounter Qualified Code(s): T50.905A - Adverse effect of unspecified drugs, medicaments and biological substances, initial encounter Is this a current diagnosis for this admission?: Yes Plan: The patient states that he has had no appetite since starting allopurinol. (4) GERD (gastroesophageal reflux disease) Qualifiers: Esophagitis presence: without esophagitis Qualified Code(s): K21.9 - Gastro -esophageal reflux disease without esophagitis Is this a current diagnosis for this admission?: Yes Plan: PPI. (5) Hypotension Is this a current diagnosis for this admission?: Yes Plan: Resolved, but antihypertensives still held. (6) Pulmonary nodule Is this a current diagnosis for this admission?: Yes Plan: The patient's nodule will require surveillance follow up CT at 7-12 weeks. The patient is a current smoker. (7) Prostatic nodule Is this a current diagnosis for this admission?: Yes Plan: Will check a PSA. Will need to follow up with urology as outpatient. - Time Time Spent with patient: 25-34 minutes Medications reviewed and adjusted accordingly: Yes
[2017-09-25] MEDS: ATORVASTATIN CALCIUM 80 MG TABLET PO SCH ×2 (04:03→21:54)
[2017-09-25] MEDS: CARVEDILOL 6.25 MG TABLET PO SCH ×3 (04:04→21:54)
[2017-09-25] MEDS: HEPARIN SOD (PORCINE) 5,000 UNIT/ML 1 ML SYRINGE SUBCUT SCH ×4 (04:12→21:55)
[2017-09-25] MEDS: LANSOPRAZOLE 30 MG TAB.RAP.DR PO SCH (05:41)
[2017-09-25] MEDS: IPRATROPIUM/ALBUTEROL 0.5-2.5 MG/3 ML AMPUL NEB PRN ×3 (08:17→19:51)
[2017-09-25] MEDS: CLOPIDOGREL BISULFATE 75 MG TABLET PO SCH (09:13)
[2017-09-25] MEDS: LISINOPRIL 10 MG TABLET PO SCH (09:13)
[2017-09-25] MEDS: ASPIRIN 81 MG TABLET, ENT COATED PO SCH (09:13)
[2017-09-25] MEDS: SERTRALINE HCL 50 MG TABLET PO SCH (09:13)
[2017-09-25] MEDS: ISOSORBIDE MONONITRATE 30 MG TAB.ER.24H PO SCH (09:13)
[2017-09-25] MEDS: INSULIN REG, HUMAN 100 UNIT/ML 3 ML VIAL (PYX) SUBCUT PRN (12:21)
[2017-09-25 14:39] LABS: ANION GAP 9 (5-19); BLOOD UREA NITROGEN 36 mg/dL (7-20); CALCIUM 8.6 mg/dL (8.4-10.2); CARBON DIOXIDE 20 mmol/L (22-30); CHLORIDE 104 mmol/L (98-107); GLUCOSE 169 mg/dL (75-110); POTASSIUM 5.1 mmol/L (3.6-5.0); SODIUM 133.3 mmol/L (137-145)
--- NOTE | 2017-09-26 05:19 | PDOC PROGRESS REPORT ---
Subjective Progress Note for:: 09/25/17 Subjective:: The patient is without new complaints. Reason For Visit: HORACIO,ADR,PULMONARY NODULE,MODULARITY OF PROSTATE Physical Exam Vital Signs: Temp Pulse Resp BP Pulse Ox 99.5 F 99 14 103/61 97 09/26/17 03:45 09/26/17 03:45 09/26/17 03:45 09/26/17 03:45 09/26/17 03:45 Intake & Output 09/24/17 09/25/17 09/26/17 06:59 06:59 06:59 Intake Total 8507 653 0352 Balance 0733 264 0997 Weight 93.1 kg 93.4 kg 92.1 kg General appearance: PRESENT: no acute distress, cooperative, well-developed, well-nourished Respiratory exam: PRESENT: other - no increased work of breathing. No tactile fremitus. Cardiovascular exam: PRESENT: RRR, systolic murmur, other - No lateral PMI. No thrills.. ABSENT: gallop GI/Abdominal exam: PRESENT: organolmegaly, soft. ABSENT: distended, hernia, mass, tenderness Extremities exam: ABSENT: clubbing, joint swelling, pedal edema, tenderness Neurological exam: PRESENT: alert, awake, oriented to person, oriented to place , oriented to time, oriented to situation, CN II-XII grossly intact. ABSENT: motor sensory deficit Psychiatric exam: PRESENT: appropriate affect, normal mood Skin exam: PRESENT: dry, intact, warm Results Laboratory Results: 09/24/17 09:38 09/25/17 14:07 09/25/17 14:07 Sodium 133.3 L Potassium 5.1 H Chloride 104 Carbon Dioxide 20 L Anion Gap 9 BUN 36 H Creatinine 2.36 H Est GFR ( Amer) 34 L Est GFR (Non-Af Amer) 28 L Glucose 169 H Calcium 8.6 Impressions: Chest X-Ray 09/24/17 08:00 IMPRESSION: Trace left pleural effusion. Assessment & Plan - Diagnosis (1) Acute on chronic renal insufficiency Is this a current diagnosis for this admission?: Yes Plan: IV fluids and avoid nephrotoxic agents. Slowly improving. (2) DM II (diabetes mellitus, type II), controlled Qualifiers: Diabetes mellitus senior care insulin use: unspecified terminal operations manager insulin use status Diabetes mellitus complication status: with kidney complications Diabetes mellitus complication detail: with chronic kidney disease Chronic kidney disease stage: stage 3 (moderate) Qualified Code(s): E11.22 - Type 2 diabetes mellitus with diabetic chronic kidney disease; N18.3 - Chronic kidney disease, stage 3 (moderate); N18.3 - Chronic kidney disease, stage 3 (moderate) ; N18.3 - Chronic kidney disease, stage 3 (moderate) Is this a current diagnosis for this admission?: Yes Plan: FSBS and SSI. Continue home medications as possible. (3) Adverse drug reaction Qualifiers: Encounter type: initial encounter Qualified Code(s): T50.905A - Adverse effect of unspecified drugs, medicaments and biological substances, initial encounter Is this a current diagnosis for this admission?: Yes Plan: The patient states that he has had no appetite since starting allopurinol. (4) GERD (gastroesophageal reflux disease) Qualifiers: Esophagitis presence: without esophagitis Qualified Code(s): K21.9 - Gastro -esophageal reflux disease without esophagitis Is this a current diagnosis for this admission?: Yes Plan: PPI. (5) Hypotension Is this a current diagnosis for this admission?: Yes Plan: Resolved, but antihypertensives still held. (6) Pulmonary nodule Is this a current diagnosis for this admission?: Yes (7) Prostatic nodule Is this a current diagnosis for this admission?: Yes Plan: PSA wnl. - Time Time Spent with patient: 25-34 minutes
[2017-09-26] MEDS: LANSOPRAZOLE 30 MG TAB.RAP.DR PO SCH (05:52)
[2017-09-26] MEDS: HEPARIN SOD (PORCINE) 5,000 UNIT/ML 1 ML SYRINGE SUBCUT SCH ×3 (05:54→22:00)
[2017-09-26 06:55] LABS: ANION GAP 10 (5-19); BLOOD UREA NITROGEN 39 mg/dL (7-20); CALCIUM 8.6 mg/dL (8.4-10.2); CARBON DIOXIDE 20 mmol/L (22-30); CHLORIDE 105 mmol/L (98-107); GLUCOSE 134 mg/dL (75-110); SODIUM 134.5 mmol/L (137-145)
[2017-09-26] MEDS: SERTRALINE HCL 50 MG TABLET PO SCH (10:03)
[2017-09-26] MEDS: CLOPIDOGREL BISULFATE 75 MG TABLET PO SCH (10:04)
[2017-09-26] MEDS: ISOSORBIDE MONONITRATE 30 MG TAB.ER.24H PO SCH (10:04)
[2017-09-26] MEDS: ASPIRIN 81 MG TABLET, ENT COATED PO SCH (10:04)
[2017-09-26] MEDS: CARVEDILOL 6.25 MG TABLET PO SCH ×2 (10:04→21:55)
[2017-09-26] MEDS: LISINOPRIL 10 MG TABLET PO SCH (10:05)
--- NOTE | 2017-09-26 11:28 | Physician Advisory Note ---
Physician Advisor ProgressNote .: Pursuant to the plan for [facility], I have reviewed the medical record for this patient. Physician Advisor Statement: Please consider documenting, if you agree: 1. "Chronic diastolic CHF" (per ECHO 2014, EF nl, grade I/IV diast dysfn) 2. Medical necessity points: - Pt has gone multiple days of tx/monitoring in hospital with Cr not yet back to baseline despite IVF & holding LACY-I, etc. - Needing to be careful in IVF administration for HORACIO due to underlying diastolic HF (if has never had CHF exac, that's now called 'stage B chronic CHF' ) - "Recurrent Fevers" - are these concerning, or not? What possibly is underlying dx? - "recurrent tachycardia, despite restarting Coreg" - is this concerning, or not? What is possible underlying dx causing this? - "I AM CONCERNED about " 3. "Clarification: dx is Acute Kidney Injury on CKD Stage 3, not acute/chr kidney insufficiency" (& correct this wording in the dx list for ongoing notes) - "kidney insufficiency", whether acute or chronic, is not considered the same thing as HORACIO/ARF or CKD/CRF, & does not reflect the increased severity of illness or concern involved. 4. "Acute metabolic acidosis due to HORACIO" Status: Appropriate for INpatient status. Pertinent points: HORACIO/adverse drug rxn/hypotension/"symptom type dx.s" are typically "Obs 'til proven otherwise" because they often resolve quickly w/tx/time, so it is reasonable that [employer] would recommend Obs when reviewing first day's notes, especially given IVF rate not "intense" without mention of reason for such caution such as underlying CHF. (Status is based primarily on severity of illness and intensity of service.) However, noting how far from baseline his Cr was to start, & the caution needed with IVF rate, - On 2nd day, pt's Cr still not even close to baseline, pt still w/hyperkalemia as high as 6.1, pt w/unstable VS including temp repeatedly as high as 102s, & HR repeatedly 100s, even after restarting Coreg. BC was done after initial fever 102.5, & then repeated after 2nd fever spike of 102.1 on 8 late PM. - On 3rd & 4th & 5th days, pt still not back to baseline renal function, with hypotension as low as 103/61, continued recurrent fevers & tachycardia, continued hyperkalemia, continued evidence for likely acute metabolic acidosis ( bicarb 19-21) related to HORACIO. It is known that pt has chronic diastolic CHF, explaining attending's hesitation to use as high a rate of IVF as might otherwise be given for this degree of HORACIO (risk for precipitating acute CHF if given too quickly). Thanks, CK
[2017-09-26] MEDS: NORMAL SALINE 1000 ML 1,000 ML IV PRN (15:17)
--- NOTE | 2017-09-26 18:59 | PDOC PROGRESS REPORT ---
Subjective Progress Note for:: 09/26/17 Subjective:: This is 51 years old male patient admitted with several days history of generalized body weakness after he started on allopurinol. I seen patient resting in bed. He still complains of weakness. Reason For Visit: ACUTE KIDNEY INJURY,HYPERKALEMIA,PULMONARY NODULE, Physical Exam Vital Signs: Temp Pulse Resp BP Pulse Ox 99.4 F 90 18 115/80 97 09/26/17 15:05 09/26/17 15:05 09/26/17 15:05 09/26/17 15:05 09/26/17 15:05 Intake & Output 09/25/17 09/26/17 09/27/17 06:59 06:59 06:59 Intake Total 600 Balance 600 Results Impressions: Chest X-Ray 09/24/17 08:00 IMPRESSION: Trace left pleural effusion. Assessment & Plan - Diagnosis (1) Ynazf-fp-pxrkerw kidney injury Qualifiers: Chronic kidney disease stage: stage 3 (moderate) Is this a current diagnosis for this admission?: Yes Plan: Most probably precipitated by allopurinol. I will continue judicious hydration. (2) Hyperkalemia Is this a current diagnosis for this admission?: Yes Plan: Resolved (3) Type 2 diabetes mellitus Is this a current diagnosis for this admission?: Yes Plan: Continue current regimen
[2017-09-26] MEDS: ATORVASTATIN CALCIUM 80 MG TABLET PO SCH (21:55)
[2017-09-27] MEDS: NORMAL SALINE 1000 ML 1,000 ML IV PRN ×2 (05:19→16:25)
[2017-09-27] MEDS: LANSOPRAZOLE 30 MG TAB.RAP.DR PO SCH (05:22)
[2017-09-27] MEDS: HEPARIN SOD (PORCINE) 5,000 UNIT/ML 1 ML SYRINGE SUBCUT SCH ×3 (05:23→21:34)
[2017-09-27] MEDS: SERTRALINE HCL 50 MG TABLET PO SCH (10:49)
[2017-09-27] MEDS: LISINOPRIL 10 MG TABLET PO SCH (10:49)
[2017-09-27] MEDS: CLOPIDOGREL BISULFATE 75 MG TABLET PO SCH (10:49)
[2017-09-27] MEDS: ASPIRIN 81 MG TABLET, ENT COATED PO SCH (10:49)
[2017-09-27] MEDS: ISOSORBIDE MONONITRATE 30 MG TAB.ER.24H PO SCH (10:49)
[2017-09-27] MEDS: CARVEDILOL 6.25 MG TABLET PO SCH ×2 (10:52→21:34)
--- NOTE | 2017-09-27 16:21 | PDOC PROGRESS REPORT ---
Subjective Progress Note for:: 09/27/17 Subjective:: Patient reports feeling much better. His creatinine is trending down. No new complaints. Reason For Visit: ACUTE KIDNEY INJURY,HYPERKALEMIA,PULMONARY NODULE, Physical Exam Vital Signs: Temp Pulse Resp BP Pulse Ox 98.5 F 94 18 135/69 H 98 09/27/17 16:00 09/27/17 16:00 09/27/17 16:00 09/27/17 16:00 09/27/17 16:00 Intake & Output 09/26/17 09/27/17 09/28/17 06:59 06:59 06:59 Intake Total 2370 720 Balance 2370 720 Weight 94.5 kg General appearance: PRESENT: no acute distress Head exam: PRESENT: atraumatic Mouth exam: PRESENT: moist Neck exam: ABSENT: carotid bruit, JVD, lymphadenopathy, thyromegaly Cardiovascular exam: PRESENT: RRR. ABSENT: diastolic murmur, rubs, systolic murmur Vascular exam: PRESENT: normal capillary refill GI/Abdominal exam: PRESENT: normal bowel sounds, soft. ABSENT: distended, guarding, mass, organolmegaly, rebound, tenderness Extremities exam: PRESENT: full ROM. ABSENT: calf tenderness, clubbing, pedal edema Neurological exam: PRESENT: alert, awake, oriented to time, oriented to situation Psychiatric exam: PRESENT: normal mood Results Impressions: Chest X-Ray 09/24/17 08:00 IMPRESSION: Trace left pleural effusion. Assessment & Plan - Diagnosis (1) Pxroo-kk-qjawjuw kidney injury Qualifiers: Chronic kidney disease stage: stage 3 (moderate) Is this a current diagnosis for this admission?: Yes Plan: Improving (2) Hyperkalemia Is this a current diagnosis for this admission?: Yes Plan: Has resolved (3) Type 2 diabetes mellitus Is this a current diagnosis for this admission?: Yes Plan: Continue current regimen
[2017-09-27] MEDS: IPRATROPIUM/ALBUTEROL 0.5-2.5 MG/3 ML AMPUL NEB PRN (20:28)
[2017-09-27] MEDS: ATORVASTATIN CALCIUM 80 MG TABLET PO SCH (21:34)
[2017-09-27 22:57] LABS: APPEARANCE,URINE CLEAR; BILIRUBIN,URINE NEGATIVE (NEGATIVE); COLOR,URINE YELLOW; GLUCOSE, URINE NEGATIVE (NEGATIVE); KETONES,URINE NEGATIVE (NEGATIVE); LEUKOCYTE ESTERASE,URINE NEGATIVE (NEGATIVE); NITRITE,URINE NEGATIVE (NEGATIVE); PROTEIN,URINE NEGATIVE (NEGATIVE); URINE SPECIFIC GRAVITY 1.015; UROBILINOGEN,URINE NEGATIVE mg/dL (<2.0)
[2017-09-27 23:26] LABS: HEMATOCRIT 44.9 % (37.9-51.0); HEMOGLOBIN 15.3 g/dL (13.5-17.0); MEAN CORPUSCULAR HEMOGLOBIN 30.8 pg (27.0-33.4); MEAN CORPUSCULAR HGB CONC 34.2 g/dL (32.0-36.0); MEAN CORPUSCULAR VOLUME 90 fl (80-97); PLATELET COUNT 168 10^3/uL (150-450); RED BLOOD COUNT 4.98 10^6/uL (4.35-5.55); RED CELL DISTRIBUTION WIDTH 16.4 % (11.5-14.0); WHITE BLOOD COUNT 8.6 10^3/uL (4.0-10.5)
[2017-09-27 23:55] LABS: ABSOLUTE MONOCYTES # (MANUAL) 0.3 10^3/uL (0.1-1.4); BASOPHILS % (MANUAL) 2 % (0-2); EOSINOPHILS % (MANUAL) 0 % (0-6); LYMPHOCYTES % (MANUAL) 34 % (13-45); MONOCYTES % (MANUAL) 4 % (3-13); SEGMENTED NEUTROPHILS % (MAN) 47 % (42-78); TOTAL CELLS COUNTED 100
[2017-09-28] LABS: ANISOCYTOSIS 1+; PLATELET COMMENT ADEQUATE; POLYCHROMASIA SLIGHT; SCHISTOCYTES SLIGHT; SMUDGE CELLS PRESENT
[2017-09-28] MEDS: NORMAL SALINE 1000 ML 1,000 ML IV PRN (01:04)
[2017-09-28] MEDS: ACETAMINOPHEN 325 MG TABLET PO PRN (04:14)
[2017-09-28 05:44] LABS: ANION GAP 10 (5-19); BLOOD UREA NITROGEN 38 mg/dL (7-20); CALCIUM 8.1 mg/dL (8.4-10.2); CARBON DIOXIDE 17 mmol/L (22-30); CHLORIDE 107 mmol/L (98-107); GLUCOSE 111 mg/dL (75-110); POTASSIUM 4.9 mmol/L (3.6-5.0)
[2017-09-28] MEDS: LANSOPRAZOLE 30 MG TAB.RAP.DR PO SCH (06:52)
[2017-09-28] MEDS: HEPARIN SOD (PORCINE) 5,000 UNIT/ML 1 ML SYRINGE SUBCUT SCH (06:52)
--- NOTE | 2017-09-28 10:24 | PDOC DISCHARGE SUMMARY ---
General - Admit/Disc Date/PCP Admission Date/Primary Care Provider: 09/26/17 11:55 JAMAL MARROQUIN, Discharge Date: 09/28/17 - Discharge Diagnosis (1) Ivprq-er-sujhytu kidney injury Is this a current diagnosis for this admission?: Yes Summary: Patient has underlying stage III CKD (2) Hyperkalemia Is this a current diagnosis for this admission?: Yes (3) Type 2 diabetes mellitus Is this a current diagnosis for this admission?: Yes - Additional Information Home Medications: Aspirin [Ecotrin 81 mg EC Tablet] 81 mg PO DAILY 09/22/17 Atorvastatin Calcium [Lipitor 80 mg Tablet] 80 mg PO QHS 09/22/17 Carvedilol [Coreg 6.25 mg Tablet] 6.25 mg PO Q12 09/22/17 Clopidogrel Bisulfate [Plavix 75 mg Tablet] 75 mg PO DAILY 09/22/17 Cyclobenzaprine HCl [Flexeril 10 mg Tablet] 10 mg PO Q8HP PRN 09/22/17 Glipizide [Glucotrol 10 mg Tablet] 10 mg PO BID 09/22/17 Hydrocodone/Acetaminophen [Hydrocodone-Acetamin 5-325 mg] 1 tab PO Q6HP PRN 11/30 Isosorbide Mononitrate [Isosorbide Mononitrate ER] 30 mg PO DAILY 09/22/17 Lisinopril [Prinivil 10 mg Tablet] 10 mg PO DAILY 09/22/17 Omeprazole 20 mg PO DAILY 09/22/17 Sertraline HCl [Zoloft 50 mg Tablet] 50 mg PO DAILY 09/22/17 History of Present Illness History of Present Illness: CHILANGO SANDRA is a 56 year old male who presents to the ED today with complaints of weakness. The patient states that several days ago he was started on allopurinol by his doctor at the [place]. He states that someone there felt that he had Gout, although he denies having any painful, red, or hot joints. Since starting the allopurinol, the patient states that he has not had an appetite. Today he felt weak and came to the ED. He was found to have a greatly elevated creatinine over his baseline of about 2.0. Hospital Course Hospital Course: This is 51 years old male patient admitted with several days history of generalized body weakness after he started on allopurinol. His initial workup revealed acute on chronic kidney injury with creatinine of 3.16. Patient has been hydrated cautiously and his creatinine has been starting trending down. His latest creatinine value is 2.44. And his baseline creatinine is 2. Patient is able to eat and drink well he tolerates well. His vital signs are within normal limits. Patient is stable enough to be discharged. He is advised not to take allopurinol anymore. I will continue all his home medications except allopurinol and patient also advised to follow- up with his primary care physician. Physical Exam Vital Signs: Temp Pulse Resp BP Pulse Ox 97.8 F 77 16 97/49 L 94 09/28/17 08:01 09/28/17 08:01 09/28/17 08:01 09/28/17 08:01 09/28/17 08:01 Intake & Output 09/27/17 09/28/17 09/29/17 06:59 06:59 06:59 Intake Total 2370 3820 Balance 2370 3820 Weight 94.5 kg 94.7 kg General appearance: PRESENT: no acute distress Head exam: PRESENT: atraumatic, normocephalic Eye exam: PRESENT: conjunctiva pink Mouth exam: PRESENT: moist Neck exam: ABSENT: carotid bruit, JVD, lymphadenopathy, thyromegaly Respiratory exam: PRESENT: clear to auscultation antionette. ABSENT: rales, rhonchi, wheezes Cardiovascular exam: PRESENT: RRR. ABSENT: diastolic murmur, rubs, systolic murmur GI/Abdominal exam: PRESENT: normal bowel sounds, soft. ABSENT: distended, guarding, mass, organolmegaly, rebound, tenderness Extremities exam: PRESENT: full ROM. ABSENT: calf tenderness, clubbing, pedal edema Neurological exam: PRESENT: alert, awake, oriented to time, oriented to situation Psychiatric exam: PRESENT: normal mood Results Laboratory Results: 09/27/17 22:50 09/28/17 04:08 09/27/17 09/27/17 09/28/17 22:35 22:50 04:08 WBC 8.6 RBC 4.98 Hgb 15.3 Hct 44.9 MCV 90 MCH 30.8 MCHC 34.2 RDW 16.4 H Plt Count 168 Seg Neutrophils % Not Reportable Lymphocytes % Not Reportable Monocytes % Not Reportable Eosinophils % Not Reportable Basophils % Not Reportable Absolute Neutrophils Not Reportable Absolute Lymphocytes Not Reportable Absolute Monocytes Not Reportable Absolute Eosinophils Not Reportable Absolute Basophils Not Reportable Sodium 134.0 L Potassium 4.9 Chloride 107 Carbon Dioxide 17 L Anion Gap 10 BUN 38 H Creatinine 2.44 H Est GFR ( Amer) 33 L Est GFR (Non-Af Amer) 27 L Glucose 111 H Calcium 8.1 L Urine Color YELLOW Urine Appearance CLEAR Urine pH 5.0 Ur Specific [place] 1.015 Urine Protein NEGATIVE Urine Glucose (UA) NEGATIVE Urine Ketones NEGATIVE Urine Blood NEGATIVE Urine Nitrite NEGATIVE Ur Leukocyte Esterase NEGATIVE Urine WBC (Auto) 1 Impressions: Chest X-Ray 09/24/17 08:00 IMPRESSION: Trace left pleural effusion. Qualifiers - * PATIENT BEING DISCHARGED WITH ANY OF THE FOLLOWING DIAGNOSIS: No
[2017-09-28] MEDS: SERTRALINE HCL 50 MG TABLET PO SCH (11:52)
[2017-09-28] MEDS: CARVEDILOL 6.25 MG TABLET PO SCH (11:52)
[2017-09-28] MEDS: ASPIRIN 81 MG TABLET, ENT COATED PO SCH (11:52)
[2017-09-28] MEDS: ISOSORBIDE MONONITRATE 30 MG TAB.ER.24H PO SCH (11:52)
[2017-09-28] MEDS: CLOPIDOGREL BISULFATE 75 MG TABLET PO SCH (11:52)
[2017-09-28] MEDS: IPRATROPIUM/ALBUTEROL 0.5-2.5 MG/3 ML AMPUL NEB PRN (12:01)
[2017-09-28] MEDS: LISINOPRIL 10 MG TABLET PO SCH (14:20)
[2017-09-28 14:35] VITALS: BP 135/69
== END 2017-09-28 17:06 | disposition home or self-care (01) | DRG 684 ==
LOC: ER 11:45 → EH 15:01 → INTOOBSV 15:14 → OBSVTOIN 15:14 → 5 21:23 → OBSVTOIN 09-26 11:55
PROVIDERS: ADMIT Internal Medicine; ATTEND Internal Medicine
PROC: 3E0F73Z Introduction of Anti-inflammatory into Respiratory Tract, Via Natural or Artificial Opening (ICD-10-PCS; principal; 2017-09-22)
DX: N17.9 Acute kidney failure, unspecified (principal); I12.9 Hypertensive chronic kidney disease with stage 1 through stage 4 chronic kidney disease, or unspecified chronic kidney disease; E11.22 Type 2 diabetes mellitus with diabetic chronic kidney disease; N18.3 Chronic kidney disease, stage 3 (moderate); E87.5 Hyperkalemia; E78.00 Pure hypercholesterolemia, unspecified; K21.9 Gastro-esophageal reflux disease without esophagitis; F32.9 Major depressive disorder, single episode, unspecified; T50.905A Adverse effect of unspecified drugs, medicaments and biological substances, initial encounter; R63.0 Anorexia; F41.9 Anxiety disorder, unspecified; I95.9 Hypotension, unspecified; R91.1 Solitary pulmonary nodule; N40.2 Nodular prostate without lower urinary tract symptoms; Z68.30 Body mass index [BMI] 30.0-30.9, adult; I25.2 Old myocardial infarction; Z79.82 Long term (current) use of aspirin; Z79.899 Other long term (current) drug therapy; Z87.891 Personal history of nicotine dependence; Z82.3 Family history of stroke; Z82.49 Family history of ischemic heart disease and other diseases of the circulatory system
CPT/HCPCS: 36415; 71045; 80048; 80053; 81001; 82550; 82553; 82962; 83735; 84153; 84484; 85025; 87040; 93005; 93010; 94640; 96360; 96361; 99285; G0378; J0610; J1644; J1720; J1815; J3490; J7030; J7620; S0164

== ENCOUNTER → 2017-11-07 | Outpatient (CLI) | payer OTHER, MEDICARE ==
[2017-11-07 09:58] LABS: HEMATOCRIT 43.9 % (37.9-51.0); MEAN CORPUSCULAR HEMOGLOBIN 30.2 pg (27.0-33.4); MEAN CORPUSCULAR HGB CONC 34.1 g/dL (32.0-36.0); MEAN CORPUSCULAR VOLUME 89 fl (80-97); PLATELET COUNT 279 10^3/uL (150-450); RED BLOOD COUNT 4.97 10^6/uL (4.35-5.55); RED CELL DISTRIBUTION WIDTH 15.9 % (11.5-14.0); WHITE BLOOD COUNT 8.2 10^3/uL (4.0-10.5)
[2017-11-07 10:11] LABS: APPEARANCE,URINE CLEAR; BILIRUBIN,URINE NEGATIVE (NEGATIVE); COLOR,URINE YELLOW; GLUCOSE, URINE NEGATIVE (NEGATIVE); KETONES,URINE NEGATIVE (NEGATIVE); LEUKOCYTE ESTERASE,URINE NEGATIVE (NEGATIVE); NITRITE,URINE NEGATIVE (NEGATIVE); PROTEIN,URINE NEGATIVE (NEGATIVE); URINE SPECIFIC GRAVITY 1.014; UROBILINOGEN,URINE NEGATIVE mg/dL (<2.0)
[2017-11-07 10:20] LABS: ANION GAP 7 (5-19); BLOOD UREA NITROGEN 26 mg/dL (7-20); CALCIUM 9.1 mg/dL (8.4-10.2); CARBON DIOXIDE 25 mmol/L (22-30); CHLORIDE 106 mmol/L (98-107); GLUCOSE 107 mg/dL (75-110); POTASSIUM 5.1 mmol/L (3.6-5.0); SODIUM 138.1 mmol/L (137-145)
[2017-11-08 11:45] LABS: CREATININE URINE 96.8 mg/dL (Not Estab.); MICROALBUMIN URINE <3.0 ug/mL (Not Estab.)
== END ==
LOC: OD 08:54
PROVIDERS: ATTEND Internal Medicine Nephrology
DX: E11.22 Type 2 diabetes mellitus with diabetic chronic kidney disease (principal); I12.9 Hypertensive chronic kidney disease with stage 1 through stage 4 chronic kidney disease, or unspecified chronic kidney disease; N18.3 Chronic kidney disease, stage 3 (moderate); E87.5 Hyperkalemia
CPT/HCPCS: 36415; 80048; 81001; 82043; 82570; 85027

== ENCOUNTER → 2018-02-12 | Outpatient (CLI) | payer OTHER, MEDICARE ==
[2018-02-12 10:04] LABS: HEMATOCRIT 51.7 % (37.9-51.0); HEMOGLOBIN 17.7 g/dL (13.5-17.0); MEAN CORPUSCULAR HEMOGLOBIN 30.9 pg (27.0-33.4); MEAN CORPUSCULAR HGB CONC 34.3 g/dL (32.0-36.0); MEAN CORPUSCULAR VOLUME 90 fl (80-97); PLATELET COUNT 238 10^3/uL (150-450); RED BLOOD COUNT 5.74 10^6/uL (4.35-5.55); RED CELL DISTRIBUTION WIDTH 15.6 % (11.5-14.0); WHITE BLOOD COUNT 7.9 10^3/uL (4.0-10.5)
[2018-02-12 10:07] LABS: APPEARANCE,URINE CLEAR; BILIRUBIN,URINE NEGATIVE (NEGATIVE); COLOR,URINE YELLOW; GLUCOSE, URINE >=500 mg/dL (NEGATIVE); KETONES,URINE NEGATIVE (NEGATIVE); LEUKOCYTE ESTERASE,URINE NEGATIVE (NEGATIVE); NITRITE,URINE NEGATIVE (NEGATIVE); PROTEIN,URINE NEGATIVE (NEGATIVE); URINE SPECIFIC GRAVITY 1.015; UROBILINOGEN,URINE NEGATIVE mg/dL (<2.0)
[2018-02-12 10:29] LABS: ANION GAP 9 (5-19); BLOOD UREA NITROGEN 31 mg/dL (7-20); CALCIUM 9.2 mg/dL (8.4-10.2); CARBON DIOXIDE 27 mmol/L (22-30); CHLORIDE 100 mmol/L (98-107); GLUCOSE 276 mg/dL (75-110); PHOSPHORUS 3.6 mg/dL (2.5-4.5); POTASSIUM 5.7 mmol/L (3.6-5.0); SODIUM 135.7 mmol/L (137-145)
== END ==
LOC: OD 09:13
PROVIDERS: ATTEND Internal Medicine Nephrology
DX: I12.9 Hypertensive chronic kidney disease with stage 1 through stage 4 chronic kidney disease, or unspecified chronic kidney disease (principal); N18.3 Chronic kidney disease, stage 3 (moderate)
CPT/HCPCS: 36415; 80048; 81001; 83970; 84100; 85027

== ENCOUNTER → 2018-02-14 | Outpatient (CLI) | payer MEDICARE, OTHER | LOC: OD 11:24 | PROVIDERS: ATTEND Internal Medicine Nephrology | DX: E87.5 Hyperkalemia (principal) | CPT/HCPCS: 36415; 84132 ==

== ENCOUNTER → 2018-02-16 | Outpatient (CLI) | payer OTHER, MEDICARE | LOC: OD 09:47 | PROVIDERS: ATTEND Internal Medicine Nephrology | DX: E87.5 Hyperkalemia (principal) | CPT/HCPCS: 36415; 84132 ==

== ENCOUNTER → 2018-04-18 | Outpatient (CLI) | payer OTHER, MEDICARE ==
[2018-04-18 17:46] LABS: HEMATOCRIT 50.5 % (37.9-51.0); HEMOGLOBIN 17.7 g/dL (13.5-17.0); MEAN CORPUSCULAR HEMOGLOBIN 31.4 pg (27.0-33.4); MEAN CORPUSCULAR VOLUME 90 fl (80-97); PLATELET COUNT 237 10^3/uL (150-450); RED BLOOD COUNT 5.64 10^6/uL (4.35-5.55); RED CELL DISTRIBUTION WIDTH 15.9 % (11.5-14.0); WHITE BLOOD COUNT 9.1 10^3/uL (4.0-10.5)
[2018-04-18 18:15] LABS: ANION GAP 11 (5-19); BLOOD UREA NITROGEN 34 mg/dL (7-20); CALCIUM 9.9 mg/dL (8.4-10.2); CARBON DIOXIDE 27 mmol/L (22-30); CHLORIDE 101 mmol/L (98-107); GLUCOSE 86 mg/dL (75-110); POTASSIUM 4.9 mmol/L (3.6-5.0); SODIUM 139.2 mmol/L (137-145)
[2018-04-20 10:38] LABS: CREATININE URINE 169.7 mg/dL (Not Estab.); MICROALBUMIN URINE 4.6 ug/mL (Not Estab.)
== END ==
LOC: OD 16:09
PROVIDERS: ATTEND Internal Medicine Nephrology
DX: I12.9 Hypertensive chronic kidney disease with stage 1 through stage 4 chronic kidney disease, or unspecified chronic kidney disease (principal); N18.3 Chronic kidney disease, stage 3 (moderate); E11.22 Type 2 diabetes mellitus with diabetic chronic kidney disease; E87.5 Hyperkalemia
CPT/HCPCS: 36415; 80048; 82043; 82570; 85027

== ENCOUNTER → 2018-08-17 | Outpatient (CLI) | payer OTHER, MEDICARE ==
[2018-08-17 08:02] LABS: HEMATOCRIT 52.2 % (37.9-51.0); HEMOGLOBIN 17.8 g/dL (13.5-17.0); MEAN CORPUSCULAR HEMOGLOBIN 30.4 pg (27.0-33.4); MEAN CORPUSCULAR HGB CONC 34.1 g/dL (32.0-36.0); MEAN CORPUSCULAR VOLUME 89 fl (80-97); PLATELET COUNT 190 10^3/uL (150-450); RED BLOOD COUNT 5.86 10^6/uL (4.35-5.55); RED CELL DISTRIBUTION WIDTH 15.1 % (11.5-14.0); WHITE BLOOD COUNT 8.2 10^3/uL (4.0-10.5)
[2018-08-17 08:31] LABS: ANION GAP 10 (5-19); BLOOD UREA NITROGEN 32 mg/dL (7-20); CALCIUM 9.3 mg/dL (8.4-10.2); CARBON DIOXIDE 26 mmol/L (22-30); CHLORIDE 105 mmol/L (98-107); GLUCOSE 165 mg/dL (75-110); PHOSPHORUS 3.9 mg/dL (2.5-4.5); POTASSIUM 4.6 mmol/L (3.6-5.0); SODIUM 140.6 mmol/L (137-145)
== END ==
LOC: OD 07:38
PROVIDERS: ATTEND Internal Medicine Nephrology
DX: I12.9 Hypertensive chronic kidney disease with stage 1 through stage 4 chronic kidney disease, or unspecified chronic kidney disease (principal); N18.3 Chronic kidney disease, stage 3 (moderate); E11.9 Type 2 diabetes mellitus without complications; E87.5 Hyperkalemia
CPT/HCPCS: 36415; 80048; 83970; 84100; 85027

== ENCOUNTER → 2019-03-11 | Outpatient (CLI) | payer OTHER ==
--- NOTE | 2019-03-11 12:56 | RADIOLOGY REPORT (SQ) ---
EXAM DESCRIPTION: CAROTID DOPPLER COMPLETED DATE/TIME: 03/11/2019 12:22 pm REASON FOR STUDY: DIZZINESS R42 DIZZINESS AND GIDDINESS COMPARISON: 11/09/2013 TECHNIQUE: Grayscale ultrasound, Doppler velocity and spectra, and color Doppler images acquired of the extra-cranial carotid and vertebral arteries. Images stored on PACS. LIMITATIONS: None. FINDINGS: RIGHT CAROTID CCA Velocities: Within normal limits. ICA Velocities Peak systolic 1.05 m/s. End diastolic 0.23 m/s. Proximal ICA/CCA peak systolic ratio 1.27. Complex plaque in the carotid bulb and proximal ICA. LEFT CAROTID CCA Velocities: Within normal limits. ICA Velocities Peak systolic 192 m/s. End diastolic 75 m/s. Proximal ICA/CCA peak systolic ratio 1.50. Complex plaque in the carotid bulb and proximal ICA. VERTEBRAL ARTERIES: Retrograde flow on the right. No evidence of subclavian artery stenosis. Antegr branden flow on the left. SUBCLAVIAN ARTERIES: No finding. OTHER: No other significant finding. IMPRESSION: 1. 50 to 69% stenosis in the left ICA. 2. Retrograde flow in the right vertebral artery. No subclavian artery stenosis is appreciated. COMMENT: Quality ID #[id number]: Velocity criteria are extrapolated from the diameter data as defined by t he Society of Radiologists in Ultrasound Consensus Conference. Radiology 2003: 229; 340-346. TECHNICAL DOCUMENTATION: JOB ID: [id number] [employer]- All Rights Reserved Reading location - IP/workstation name: [email or web address]
== END ==
LOC: WI 09:18
PROVIDERS: ATTEND Physician Assistant
DX: I65.22 Occlusion and stenosis of left carotid artery (principal); R42 Dizziness and giddiness
CPT/HCPCS: 93880

== ENCOUNTER → 2019-10-04 | Outpatient (CLI) | payer OTHER, MEDICARE ==
[2019-10-04 14:14] LABS: ABSOLUTE BASOPHILS # (AUTO) 0.1 10^3/uL (0.0-0.2); ABSOLUTE EOSINOPHILS # (AUTO) 0.1 10^3/uL (0.0-0.6); ABSOLUTE LYMPHOCYTES (AUTO) 1.8 10^3/uL (0.5-4.7); ABSOLUTE MONOCYTES (AUTO) 0.6 10^3/uL (0.1-1.4); ABSOLUTE NEUT (AUTO) 5.5 10^3/uL (1.7-8.2); BASOPHILS % (AUTO) 0.9 % (0-2); EOSINOPHILS % (AUTO) 1.6 % (0-6); HEMATOCRIT 51.1 % (37.9-51.0); HEMOGLOBIN 17.6 g/dL (13.5-17.0); LYMPHOCYTES % (AUTO) 21.9 % (13-45); MEAN CORPUSCULAR HEMOGLOBIN 31.2 pg (27.0-33.4); MEAN CORPUSCULAR HGB CONC 34.4 g/dL (32.0-36.0); MEAN CORPUSCULAR VOLUME 91 fl (80-97); MONOCYTES % (AUTO) 7.4 % (3-13); PLATELET COUNT 198 10^3/uL (150-450); RED BLOOD COUNT 5.64 10^6/uL (4.35-5.55); SEGMENTED NEUTROPHILS % (AUTO) 68.2 % (42-78); TOTAL CELLS COUNTED % (AUTO) 100 %; WHITE BLOOD COUNT 8.1 10^3/uL (4.0-10.5)
[2019-10-04 14:30] LABS: ALBUMIN 4.3 g/dL (3.5-5.0); ANION GAP 11 (5-19); BLOOD UREA NITROGEN 27 mg/dL (7-20); CALCIUM 9.3 mg/dL (8.4-10.2); CARBON DIOXIDE 24 mmol/L (22-30); CHLORIDE 105 mmol/L (98-107); GLUCOSE 197 mg/dL (75-110); PHOSPHORUS 3.2 mg/dL (2.5-4.5); POTASSIUM 4.7 mmol/L (3.6-5.0)
[2019-10-04 14:38] LABS: APPEARANCE,URINE CLEAR; BILIRUBIN,URINE NEGATIVE (NEGATIVE); COLOR,URINE YELLOW; GLUCOSE, URINE NEGATIVE (NEGATIVE); KETONES,URINE NEGATIVE (NEGATIVE); LEUKOCYTE ESTERASE,URINE NEGATIVE (NEGATIVE); NITRITE,URINE NEGATIVE (NEGATIVE); PROTEIN,URINE NEGATIVE (NEGATIVE); URINE SPECIFIC GRAVITY 1.019; UROBILINOGEN,URINE NEGATIVE mg/dL (<2.0)
== END ==
LOC: OD 13:43
PROVIDERS: ATTEND Physician Assistant Medical
DX: E11.22 Type 2 diabetes mellitus with diabetic chronic kidney disease (principal); I12.9 Hypertensive chronic kidney disease with stage 1 through stage 4 chronic kidney disease, or unspecified chronic kidney disease; N18.3 Chronic kidney disease, stage 3 (moderate)
CPT/HCPCS: 36415; 80069; 81001; 83970; 85025